=== PATIENT | male | born 1970 | race Caucasian/White ===

== ENCOUNTER 2017-06-11 02:35 | Emergency (ER) | payer MEDICARE, MEDICAID ==
[~2017-06-11] VITALS: Ht 170.2 cm; Wt 75.0 kg
[~2017-06-11 02:35] MED LIST: OLAN2.5T3 PO; OLAN5TAB3 PO
[2017-06-11 02:38] VITALS: BP 144/93
[2017-06-11] MEDS ORDERED: OLAN2.5T3 PO (02:48)
[2017-06-11] MEDS ORDERED: IBUPROFEN 200 MG TABLET ONE (02:51)
[2017-06-11] MEDS ORDERED: IBUPROFEN 200 MG TABLET PO ONE (03:00)
== END 2017-06-11 04:15 | disposition home or self-care (01) ==
LOC: ED 04:00
DX: S93.602A Unspecified sprain of left foot, initial encounter (principal); F10.220 Alcohol dependence with intoxication, uncomplicated; F20.9 Schizophrenia, unspecified; W01.0XXA Fall on same level from slipping, tripping and stumbling without subsequent striking against object, initial encounter; Y93.89 Activity, other specified; Y99.8 Other external cause status; Y92.410 Unspecified street and highway as the place of occurrence of the external cause
CPT/HCPCS: 99284

== ENCOUNTER 2017-07-23 16:23 | Emergency (ER) | payer MEDICARE, MEDICAID ==
[~2017-07-23] VITALS: Ht 170.2 cm; Wt 75.0 kg
[~2017-07-23 16:23] MED LIST changes: +FOLI-17 PO; +THIA100T6 PO
[2017-07-23 16:26] VITALS: BP 138/72
== END 2017-07-23 22:34 | disposition home or self-care (01) ==
LOC: ED 16:49
DX: F10.120 Alcohol abuse with intoxication, uncomplicated (principal)
CPT/HCPCS: 99283

== ENCOUNTER 2017-07-29 15:32 | Emergency (ER) | payer MEDICARE, MEDICAID ==
[~2017-07-29] VITALS: Ht 172.7 cm; Wt 75.0 kg
[2017-07-29 22:17] VITALS: BP 113/51
== END 2017-07-29 22:24 | disposition home or self-care (01) ==
LOC: ED 16:02
DX: S09.90XA Unspecified injury of head, initial encounter (principal); S00.83XA Contusion of other part of head, initial encounter; F10.229 Alcohol dependence with intoxication, unspecified; F17.210 Nicotine dependence, cigarettes, uncomplicated; W19.XXXA Unspecified fall, initial encounter; Y93.89 Activity, other specified; Y92.89 Other specified places as the place of occurrence of the external cause; Y99.8 Other external cause status
CPT/HCPCS: 70450; 70486; 93005; 99284

== ENCOUNTER 2017-09-16 21:13 | Emergency (ER) | payer MEDICARE, MEDICAID ==
[~2017-09-16] VITALS: Ht 170.2 cm; Wt 69.0 kg
[2017-09-17 02:36] LABS: BASOPHILS # (AUTO) 0.04 x10^3/uL (0-0.1); BASOPHILS % (AUTO) 0 % (0-1); EOSINOPHILS # (AUTO) 0.04 x10^3/uL (0-0.4); EOSINOPHILS % (AUTO) 0 % (1-7); LYMPHOCYTES # (AUTO) 3.12 x10^3/uL (1-3.4); LYMPHOCYTES % (AUTO) 32 % (22-44); MD NO; MEAN CORPUSCULAR HEMOGLOBIN 29.6 pg (27.5-34.5); MEAN CORPUSCULAR HGB CONC 33.7 g/dL (33.2-36.2); MEAN PLATELET VOLUME 7.7 fL (7.4-10.4); MONOCYTES # (AUTO) 0.86 x10^3/uL (0.2-0.8); MONOCYTES % (AUTO) 9 % (2-9); NEUTROPHILS # (AUTO) 5.66 x10^3/uL (1.8-6.8); NEUTROPHILS % (AUTO) 58 % (42-75); PLATELET COUNT 231 x10^3/uL (130-400); RED BLOOD COUNT 4.81 x10^6/uL (4.38-5.82)
[2017-09-17 02:47] LABS: ALANINE AMINOTRANSFERASE 28 U/L (12-78); ALBUMIN 3.3 g/dL (3.4-5.0); ANION GAP 10 mmol/L (5-15); CALCIUM 7.7 mg/dL (8.5-10.1); CHLORIDE 109 mmol/L (98-107); CREATININE 0.67 mg/dL (0.7-1.3)
[2017-09-17 02:51] LABS: ALKALINE PHOSPHATASE 84 U/L (45-117); BILIRUBIN,TOTAL 0.3 mg/dL (0.2-1.0); TOTAL PROTEIN 7.1 g/dL (6.4-8.2)
[2017-09-17 02:58] VITALS: BP 124/74
== END 2017-09-17 05:24 | disposition home or self-care (01) ==
LOC: ED 23:15
DX: F10.220 Alcohol dependence with intoxication, uncomplicated (principal); F20.9 Schizophrenia, unspecified
CPT/HCPCS: 36415; 80053; 80307; 85025; 99284

== ENCOUNTER 2017-09-24 11:39 | Emergency (ER) | payer MEDICARE, MEDICAID ==
[~2017-09-24] VITALS: Ht 172.7 cm; Wt 72.0 kg
[2017-09-24 14:51] VITALS: BP 109/64
== END 2017-09-24 15:58 | disposition left against medical advice (07) ==
LOC: ED 15:50
DX: F10.220 Alcohol dependence with intoxication, uncomplicated (principal); F19.10 Other psychoactive substance abuse, uncomplicated; G40.909 Epilepsy, unspecified, not intractable, without status epilepticus; Z72.9 Problem related to lifestyle, unspecified; F20.9 Schizophrenia, unspecified
CPT/HCPCS: 99283

== ENCOUNTER 2017-09-24 19:48 | Emergency (ER) | payer MEDICARE, MEDICAID ==
[~2017-09-24] VITALS: Ht 167.6 cm; Wt 70.0 kg
[2017-09-24 22:16] VITALS: BP 122/68
== END 2017-09-25 00:16 | disposition left against medical advice (07) ==
LOC: ED 20:15
DX: F10.220 Alcohol dependence with intoxication, uncomplicated (principal); F17.200 Nicotine dependence, unspecified, uncomplicated; G40.909 Epilepsy, unspecified, not intractable, without status epilepticus; F20.9 Schizophrenia, unspecified; Z72.9 Problem related to lifestyle, unspecified
CPT/HCPCS: 99283

== ENCOUNTER 2017-09-25 02:31 | Emergency (ER) | payer MEDICARE, MEDICAID ==
[2017-09-25 02:47] VITALS: BP 132/88
== END 2017-09-25 02:49 | disposition home or self-care (01) ==
LOC: ED 02:36
DX: F10.120 Alcohol abuse with intoxication, uncomplicated (principal); G40.909 Epilepsy, unspecified, not intractable, without status epilepticus; F19.10 Other psychoactive substance abuse, uncomplicated; Z72.9 Problem related to lifestyle, unspecified; F20.9 Schizophrenia, unspecified
CPT/HCPCS: 99283

== ENCOUNTER 2017-09-27 18:07 | Emergency (ER) | payer MEDICARE, MEDICAID ==
[~2017-09-27] VITALS: Ht 167.6 cm; Wt 72.7 kg
[2017-09-27 21:06] VITALS: BP 110/69
== END 2017-09-27 21:08 | disposition home or self-care (01) ==
LOC: ED 18:34
DX: F10.220 Alcohol dependence with intoxication, uncomplicated (principal); Z72.89 Other problems related to lifestyle
CPT/HCPCS: 99283

== ENCOUNTER 2017-09-28 01:16 | Emergency (ER) | payer MEDICARE, MEDICAID | END 2017-09-28 01:33 | disposition left against medical advice (07) | LOC: ED 01:27 | DX: Z53.21 Procedure and treatment not carried out due to patient leaving prior to being seen by health care provider (principal) ==

== ENCOUNTER 2017-10-05 13:59 | Emergency (ER) | payer MEDICARE, MEDICAID ==
[~2017-10-05] VITALS: Ht 170.2 cm; Wt 75.0 kg
[2017-10-05 18:00] VITALS: BP 103/57
== END 2017-10-05 18:25 | disposition home or self-care (01) ==
LOC: ED 18:10
DX: S00.211A Abrasion of right eyelid and periocular area, initial encounter (principal); F10.120 Alcohol abuse with intoxication, uncomplicated; F17.200 Nicotine dependence, unspecified, uncomplicated; W19.XXXA Unspecified fall, initial encounter; Y93.89 Activity, other specified; Y92.009 Unspecified place in unspecified non-institutional (private) residence as the place of occurrence of the external cause; Y99.9 Unspecified external cause status
CPT/HCPCS: 70450; 99284

== ENCOUNTER 2017-10-05 20:20 | Emergency (ER) | payer MEDICARE, MEDICAID ==
[2017-10-06 01:37] VITALS: BP 117/63
== END 2017-10-06 01:44 | disposition home or self-care (01) ==
LOC: ED 21:52
DX: S06.0X0A Concussion without loss of consciousness, initial encounter (principal); S02.2XXA Fracture of nasal bones, initial encounter for closed fracture; S00.81XA Abrasion of other part of head, initial encounter; F10.220 Alcohol dependence with intoxication, uncomplicated; W18.30XA Fall on same level, unspecified, initial encounter; Y93.89 Activity, other specified; Y92.410 Unspecified street and highway as the place of occurrence of the external cause; Y99.8 Other external cause status
CPT/HCPCS: 70450; 70486; 72125; 99284

== ENCOUNTER 2017-10-06 09:05 | Emergency (ER) | payer MEDICARE, MEDICAID ==
[~2017-10-06] VITALS: Ht 172.7 cm; Wt 68.5 kg
[2017-10-06 12:38] VITALS: BP 115/77
== END 2017-10-06 13:10 | disposition home or self-care (01) ==
LOC: ED 09:12
DX: S09.90XA Unspecified injury of head, initial encounter (principal); F10.220 Alcohol dependence with intoxication, uncomplicated; F17.210 Nicotine dependence, cigarettes, uncomplicated; X58.XXXA Exposure to other specified factors, initial encounter; Y93.89 Activity, other specified; Y92.89 Other specified places as the place of occurrence of the external cause; Y99.8 Other external cause status
CPT/HCPCS: 99283

== ENCOUNTER 2017-10-07 14:45 | Emergency (ER) | payer MEDICARE, MEDICAID ==
[~2017-10-07] VITALS: Ht 170.2 cm; Wt 68.2 kg
[2017-10-07 15:23] LABS: BASOPHILS # (AUTO) 0.06 x10^3/uL (0-0.1); BASOPHILS % (AUTO) 1 % (0-1); EOSINOPHILS # (AUTO) 0.02 x10^3/uL (0-0.4); EOSINOPHILS % (AUTO) 0 % (1-7); LYMPHOCYTES # (AUTO) 2.12 x10^3/uL (1-3.4); LYMPHOCYTES % (AUTO) 27 % (22-44); MD NO; MEAN CORPUSCULAR HEMOGLOBIN 29.7 pg (27.5-34.5); MEAN CORPUSCULAR HGB CONC 33.8 g/dL (33.2-36.2); MEAN CORPUSCULAR VOLUME 87.9 fL (81-97); MEAN PLATELET VOLUME 7.3 fL (7.4-10.4); MONOCYTES # (AUTO) 0.97 x10^3/uL (0.2-0.8); MONOCYTES % (AUTO) 12 % (2-9); NEUTROPHILS # (AUTO) 4.71 x10^3/uL (1.8-6.8); NEUTROPHILS % (AUTO) 60 % (42-75); PLATELET COUNT 286 x10^3/uL (130-400); RED BLOOD COUNT 5.05 x10^6/uL (4.38-5.82); RED CELL DISTRIBUTION WIDTH 15.3 % (9.4-14.8)
[2017-10-07] MEDS ORDERED: THIAMINE 100 MG in SODIUM CHLORIDE 0.9% 50 ML IVPB ONE (15:30)
[2017-10-07] MEDS ORDERED: SODIUM CHLORIDE FLUSH 10ML SYR IVF ONE (15:30)
[2017-10-07] MEDS ORDERED: SODIUM CHLORIDE 0.9% 1,000ML IVBOLUS ONE (15:30)
[2017-10-07 15:36] LABS: ALANINE AMINOTRANSFERASE 36 U/L (12-78); ALBUMIN 3.7 g/dL (3.4-5.0); ANION GAP 12 mmol/L (5-15); CALCIUM 8.2 mg/dL (8.5-10.1); CHLORIDE 103 mmol/L (98-107); CREATININE 0.78 mg/dL (0.7-1.3)
[2017-10-07 15:39] LABS: ALKALINE PHOSPHATASE 115 U/L (45-117); BILIRUBIN,TOTAL 0.3 mg/dL (0.2-1.0); TOTAL PROTEIN 8.2 g/dL (6.4-8.2)
[2017-10-07 20:49] VITALS: BP 100/76
== END 2017-10-07 20:51 | disposition home or self-care (01) ==
LOC: ED 16:11
DX: S63.601A Unspecified sprain of right thumb, initial encounter (principal); F10.129 Alcohol abuse with intoxication, unspecified; W19.XXXA Unspecified fall, initial encounter; Y93.89 Activity, other specified; Y92.410 Unspecified street and highway as the place of occurrence of the external cause; Y99.9 Unspecified external cause status
CPT/HCPCS: 36415; 73140; 80053; 85025; 96365; 99285; J3411; J7030

== ENCOUNTER 2017-10-08 02:38 | Inpatient (IN) | payer MEDICARE, MEDICAID ==
[~2017-10-08] VITALS: Ht 170.2 cm; Wt 75.2 kg
[2017-10-08] MEDS ORDERED: HYDROcodone/APAP 5/325 TABLET ONE (03:34)
[2017-10-08] MEDS ORDERED: LORazepam 2 MG/ML, 1ML ONE (06:23)
[2017-10-08] MEDS ORDERED: LORazepam 2 MG/ML, 1ML IM ONE (06:30)
[2017-10-08] MEDS ORDERED: SODIUM CHLORIDE FLUSH 10ML SYR IVF ONE (11:30)
[2017-10-08 11:53] LABS: BASOPHILS # (AUTO) 0.05 x10^3/uL (0-0.1); BASOPHILS % (AUTO) 1 % (0-1); EOSINOPHILS # (AUTO) 0.06 x10^3/uL (0-0.4); EOSINOPHILS % (AUTO) 1 % (1-7); LYMPHOCYTES % (AUTO) 37 % (22-44); MD NO; MEAN CORPUSCULAR HEMOGLOBIN 30.3 pg (27.5-34.5); MEAN CORPUSCULAR HGB CONC 34.2 g/dL (33.2-36.2); MEAN CORPUSCULAR VOLUME 88.6 fL (81-97); MEAN PLATELET VOLUME 7.4 fL (7.4-10.4); MONOCYTES # (AUTO) 1.02 x10^3/uL (0.2-0.8); MONOCYTES % (AUTO) 15 % (2-9); NEUTROPHILS # (AUTO) 3.24 x10^3/uL (1.8-6.8); NEUTROPHILS % (AUTO) 47 % (42-75); PLATELET COUNT 271 x10^3/uL (130-400); RED CELL DISTRIBUTION WIDTH 15.5 % (9.4-14.8)
[2017-10-08 12:05] LABS: ALBUMIN 3.5 g/dL (3.4-5.0); ANION GAP 11 mmol/L (5-15); CALCIUM 8.1 mg/dL (8.5-10.1); CHLORIDE 107 mmol/L (98-107); CREATININE 0.75 mg/dL (0.7-1.3)
[2017-10-08] MEDS ORDERED: MAGNESIUM SULFATE 1 GM, THIAMINE 100 MG, FOLIC ACID 1 MG, MVI ADULT 10 ML in SODIUM CHL... IV ONE (13:30)
[2017-10-08 15:00] VITALS: BP 106/72
[2017-10-08] MEDS ORDERED: LORazepam 2 MG/ML, 1ML IV PRN ×4 (15:00)
[2017-10-08] MEDS ORDERED: ONDANSETRON ODT 4 MG PO PRN (15:00)
[2017-10-08] MEDS ORDERED: ACETAMINOPHEN 325 MG TABLET PO PRN (15:00)
[2017-10-08] MEDS ORDERED: hydrALAzine 20 MG/ML, 1ML IVPush PRN (15:00)
[2017-10-08] MEDS ORDERED: DOCUSATE 100 MG CAPSULE PO PRN (15:00)
[2017-10-08] MEDS ORDERED: GUAIFENESIN/DM 200-20MG, 10ML UDC PO PRN (15:00)
[2017-10-08] MEDS: NICOTINE 14MG/24 HR PATCH.TD24 TD SCH (16:00)
[2017-10-08] MEDS: ENOXAPARIN 40 MG/0.4 ML SQ SCH (16:01)
[2017-10-08 16:15] LABS: FOLATE LEVEL > 20.0 ng/mL (3.1-17.5)
[2017-10-08] MEDS: POTASSIUM CHLORIDE 20 MEQ, MAGNESIUM SULFATE 2 GM, THIAMINE 100 MG, MVI ADULT 10 ML, FO... IV SCH (16:37)
[2017-10-08 19:56] VITALS: BP 118/68
[2017-10-08] MEDS: LORazepam 2 MG/ML, 1ML IV PRN (20:22)
[2017-10-09 01:51] VITALS: BP 135/73
[2017-10-09 05:26] LABS: BASOPHILS # (AUTO) 0.02 x10^3/uL (0-0.1); BASOPHILS % (AUTO) 0 % (0-1); EOSINOPHILS # (AUTO) 0.04 x10^3/uL (0-0.4); EOSINOPHILS % (AUTO) 1 % (1-7); LYMPHOCYTES # (AUTO) 1.64 x10^3/uL (1-3.4); LYMPHOCYTES % (AUTO) 24 % (22-44); MD NO; MEAN CORPUSCULAR HEMOGLOBIN 30.1 pg (27.5-34.5); MEAN CORPUSCULAR HGB CONC 33.8 g/dL (33.2-36.2); MEAN CORPUSCULAR VOLUME 89.2 fL (81-97); MEAN PLATELET VOLUME 7.7 fL (7.4-10.4); MONOCYTES # (AUTO) 1.35 x10^3/uL (0.2-0.8); MONOCYTES % (AUTO) 20 % (2-9); NEUTROPHILS # (AUTO) 3.83 x10^3/uL (1.8-6.8); NEUTROPHILS % (AUTO) 56 % (42-75); PLATELET COUNT 248 x10^3/uL (130-400); RED BLOOD COUNT 4.71 x10^6/uL (4.38-5.82); RED CELL DISTRIBUTION WIDTH 14.9 % (9.4-14.8)
[2017-10-09] MEDS: LORazepam 2 MG/ML, 1ML IV PRN (05:28)
[2017-10-09 05:31] LABS: CHLORIDE 103 mmol/L (98-107)
[2017-10-09 05:43] LABS: ALANINE AMINOTRANSFERASE 29 U/L (12-78); ALBUMIN 3.4 g/dL (3.4-5.0); ALKALINE PHOSPHATASE 98 U/L (45-117); ANION GAP 9 mmol/L (5-15); CALCIUM 8.3 mg/dL (8.5-10.1); CREATININE 0.71 mg/dL (0.7-1.3); TOTAL PROTEIN 7.5 g/dL (6.4-8.2)
[2017-10-09 06:48] VITALS: BP 122/74
[2017-10-09] MEDS: PANTOPRAZOLE 40 MG IV IVPush SCH (08:19)
[2017-10-09] MEDS: OLANZAPINE 5 MG TABLET PO SCH (08:19)
[2017-10-09 14:00] VITALS: BP_SYST 123; BP_SYST 97; BP_DIAS 57; BP_DIAS 71
[2017-10-09] MEDS ORDERED: GADOBUTROL 7.5 MMOL/7.5 ML PFS ONE (15:50)
[2017-10-09] MEDS: ENOXAPARIN 40 MG/0.4 ML SQ SCH (16:08)
[2017-10-09] MEDS: POTASSIUM CHLORIDE 20 MEQ, MAGNESIUM SULFATE 2 GM, THIAMINE 100 MG, MVI ADULT 10 ML, FO... IV SCH (16:08)
[2017-10-09] MEDS: NICOTINE 14MG/24 HR PATCH.TD24 TD SCH (16:08)
[2017-10-09 19:19] VITALS: BP 127/82
[2017-10-10 01:33] VITALS: BP 125/77
[2017-10-10] MEDS: OLANZAPINE 5 MG TABLET PO SCH (08:04)
[2017-10-10] MEDS: PANTOPRAZOLE 40 MG IV IVPush SCH (08:04)
== END 2017-10-10 09:30 | disposition left against medical advice (07) | DRG 894 ==
LOC: ED 02:52 → EDIP 12:59 → 3NE 13:40
PROVIDERS: ADMIT Hospitalist; ATTEND Hospitalist
DX: F10.120 Alcohol abuse with intoxication, uncomplicated (principal); F20.9 Schizophrenia, unspecified; F17.210 Nicotine dependence, cigarettes, uncomplicated; R29.6 Repeated falls; X58.XXXA Exposure to other specified factors, initial encounter; S00.03XA Contusion of scalp, initial encounter; G40.909 Epilepsy, unspecified, not intractable, without status epilepticus; Z53.21 Procedure and treatment not carried out due to patient leaving prior to being seen by health care provider; Z87.820 Personal history of traumatic brain injury; Z59.0 Homelessness; Y93.89 Activity, other specified; Y92.89 Other specified places as the place of occurrence of the external cause
CPT/HCPCS: 36415; 70450; 70553; 80048; 80053; 82040; 82607; 82746; 83735; 84100; 84425; 84443; 85025; 99285; A9585; J1650; J3411; J3475; J3480; J7042; C9113; J2060

== ENCOUNTER 2017-10-10 20:39 | Emergency (ER) | payer MEDICARE, MEDICAID ==
[~2017-10-10] VITALS: Ht 170.2 cm; Wt 70.0 kg
[2017-10-10 20:44] VITALS: BP 110/67
== END 2017-10-10 22:25 | disposition home or self-care (01) ==
LOC: ED 21:51
DX: F10.220 Alcohol dependence with intoxication, uncomplicated (principal); G40.909 Epilepsy, unspecified, not intractable, without status epilepticus; F20.9 Schizophrenia, unspecified; F17.200 Nicotine dependence, unspecified, uncomplicated
CPT/HCPCS: 99283

== ENCOUNTER → 2017-10-10 | Emergency (ER) | payer MEDICARE, MEDICAID ==
[~2017-10-10] VITALS: Ht 170.2 cm; Wt 70.0 kg
[2017-10-10 17:08] VITALS: BP 105/64
== END ==
LOC: ED 17:10
DX: F10.220 Alcohol dependence with intoxication, uncomplicated (principal)
CPT/HCPCS: 36415; 80307; 99283

== ENCOUNTER 2017-10-27 20:13 | Emergency (ER) | payer MEDICARE, MEDICAID ==
[~2017-10-27] VITALS: Ht 170.2 cm; Wt 72.0 kg
[2017-10-27 21:30] LABS: BASOPHILS # (AUTO) 0.05 x10^3/uL (0-0.1); BASOPHILS % (AUTO) 0 % (0-1); EOSINOPHILS # (AUTO) 0.05 x10^3/uL (0-0.4); EOSINOPHILS % (AUTO) 0 % (1-7); LYMPHOCYTES # (AUTO) 2.38 x10^3/uL (1-3.4); LYMPHOCYTES % (AUTO) 21 % (22-44); MD NO; MEAN CORPUSCULAR HEMOGLOBIN 30.3 pg (27.5-34.5); MEAN CORPUSCULAR VOLUME 89.2 fL (81-97); MONOCYTES # (AUTO) 0.97 x10^3/uL (0.2-0.8); MONOCYTES % (AUTO) 9 % (2-9); NEUTROPHILS # (AUTO) 7.89 x10^3/uL (1.8-6.8); NEUTROPHILS % (AUTO) 70 % (42-75); PLATELET COUNT 204 x10^3/uL (130-400); RED BLOOD COUNT 4.66 x10^6/uL (4.38-5.82); RED CELL DISTRIBUTION WIDTH 15.7 % (9.4-14.8)
[2017-10-27 21:42] LABS: ALBUMIN 3.7 g/dL (3.4-5.0); ANION GAP 11 mmol/L (5-15); CALCIUM 8.1 mg/dL (8.5-10.1); CHLORIDE 105 mmol/L (98-107); CREATININE 0.84 mg/dL (0.7-1.3)
[2017-10-27 21:46] LABS: TROPONIN I < 0.015 ng/mL (0.000-0.045)
[2017-10-27 22:16] VITALS: BP 117/70
== END 2017-10-27 22:43 | disposition home or self-care (01) ==
LOC: ED 22:04
DX: R07.89 Other chest pain (principal); F10.120 Alcohol abuse with intoxication, uncomplicated; F17.200 Nicotine dependence, unspecified, uncomplicated; Z79.899 Other long term (current) drug therapy; Y90.9 Presence of alcohol in blood, level not specified
CPT/HCPCS: 36415; 71045; 80048; 80307; 82040; 84484; 85025; 93005; 99285

== ENCOUNTER 2017-11-05 22:42 | Emergency (ER) | payer MEDICARE, MEDICAID ==
[~2017-11-05] VITALS: Ht 170.2 cm; Wt 74.0 kg
[2017-11-05 23:01] VITALS: BP 115/34
[2017-11-05] MEDS ORDERED: BACITRACIN ZINC OINT 500U/GM, 0.9 GM TP ONE (23:30)
== END 2017-11-06 03:29 | disposition home or self-care (01) ==
LOC: ED 23:34
DX: F10.121 Alcohol abuse with intoxication delirium (principal); G92 Toxic encephalopathy; S09.90XA Unspecified injury of head, initial encounter; M25.562 Pain in left knee; F17.200 Nicotine dependence, unspecified, uncomplicated; F20.9 Schizophrenia, unspecified; Z72.9 Problem related to lifestyle, unspecified; X58.XXXA Exposure to other specified factors, initial encounter; Y93.89 Activity, other specified; Y99.8 Other external cause status; Y92.89 Other specified places as the place of occurrence of the external cause
CPT/HCPCS: 70450; 99283; 99284

== ENCOUNTER 2017-11-06 10:57 | Emergency (ER) | payer MEDICARE, MEDICAID ==
[~2017-11-06] VITALS: Ht 170.2 cm; Wt 70.0 kg
[2017-11-06 11:01] VITALS: BP 112/71
[2017-11-06] MEDS ORDERED: LIDOCAINE-MPF 1%, 5ML INFIL ONE (11:30)
[2017-11-06] MEDS ORDERED: DIPH,PERTUSS(ACELL),TET VAC/PF 0.5 ML IM-VACC ONE (11:30)
[2017-11-06] MEDS ORDERED: LIDOCAINE-MPF 1%, 5ML ONE (12:38)
== END 2017-11-06 15:46 | disposition home or self-care (01) ==
LOC: ED 15:10
DX: S02.2XXA Fracture of nasal bones, initial encounter for closed fracture (principal); S06.5X9A Traumatic subdural hemorrhage with loss of consciousness of unspecified duration, initial encounter; S01.411A Laceration without foreign body of right cheek and temporomandibular area, initial encounter; F20.9 Schizophrenia, unspecified; F10.229 Alcohol dependence with intoxication, unspecified; W19.XXXA Unspecified fall, initial encounter; Y93.89 Activity, other specified; Y99.8 Other external cause status; Y92.89 Other specified places as the place of occurrence of the external cause
CPT/HCPCS: 12011; 70450; 70486; 99284

== ENCOUNTER 2017-11-11 15:13 | Emergency (ER) | payer MEDICARE, MEDICAID ==
[~2017-11-11] VITALS: Ht 170.2 cm; Wt 72.3 kg
[2017-11-11 15:14] VITALS: BP 134/87
== END 2017-11-11 15:38 | disposition left against medical advice (07) ==
LOC: ED 15:32
DX: S81.811A Laceration without foreign body, right lower leg, initial encounter (principal); Z53.21 Procedure and treatment not carried out due to patient leaving prior to being seen by health care provider; X58.XXXA Exposure to other specified factors, initial encounter; Y93.89 Activity, other specified; Y99.8 Other external cause status; Y92.89 Other specified places as the place of occurrence of the external cause

== ENCOUNTER 2017-12-08 20:34 | Emergency (ER) | payer MEDICARE, MEDICAID ==
[~2017-12-08] VITALS: Ht 170.2 cm; Wt 75.0 kg
[2017-12-08] MEDS ORDERED: LIDOCAINE-MPF 2% ,5ML INFIL ONE (21:30)
[2017-12-08] MEDS ORDERED: LIDOCAINE-MPF 2% ,5ML ONE (21:34)
[2017-12-08 23:16] VITALS: BP 104/57
== END 2017-12-08 23:30 | disposition home or self-care (01) ==
LOC: ED 21:37
DX: S52.572A Other intraarticular fracture of lower end of left radius, initial encounter for closed fracture (principal); S52.612A Displaced fracture of left ulna styloid process, initial encounter for closed fracture; F20.9 Schizophrenia, unspecified; G40.909 Epilepsy, unspecified, not intractable, without status epilepticus; F10.20 Alcohol dependence, uncomplicated; F17.200 Nicotine dependence, unspecified, uncomplicated; F11.10 Opioid abuse, uncomplicated; X58.XXXA Exposure to other specified factors, initial encounter; Y93.89 Activity, other specified; Y92.89 Other specified places as the place of occurrence of the external cause; Y99.8 Other external cause status
CPT/HCPCS: 25605; 99284

== ENCOUNTER 2017-12-10 10:16 | Emergency (ER) | payer MEDICARE, MEDICAID ==
[~2017-12-10] VITALS: Ht 170.2 cm; Wt 66.8 kg
[2017-12-10] MEDS ORDERED: BACITRACIN ZINC OINT 500U/GM, 0.9 GM ONE (11:28)
[2017-12-10 17:37] VITALS: BP 96/48
== END 2017-12-10 18:35 | disposition home or self-care (01) ==
LOC: ED 10:35
DX: F10.220 Alcohol dependence with intoxication, uncomplicated (principal); G40.909 Epilepsy, unspecified, not intractable, without status epilepticus
CPT/HCPCS: 99283

== ENCOUNTER 2018-01-03 21:14 | Emergency (ER) | payer MEDICARE, MEDICAID ==
[~2018-01-03] VITALS: Ht 177.8 cm; Wt 80.0 kg
[2018-01-03 22:10] LABS: ANION GAP 12 mmol/L (5-15); CALCIUM 8.5 mg/dL (8.5-10.1); CHLORIDE 104 mmol/L (98-107)
[2018-01-04 05:08] VITALS: BP 115/75
== END 2018-01-04 05:55 | disposition home or self-care (01) ==
LOC: ED 22:26
DX: F10.221 Alcohol dependence with intoxication delirium (principal); S82.422A Displaced transverse fracture of shaft of left fibula, initial encounter for closed fracture; Z72.89 Other problems related to lifestyle; F17.200 Nicotine dependence, unspecified, uncomplicated; X58.XXXA Exposure to other specified factors, initial encounter; Y93.89 Activity, other specified; Y92.89 Other specified places as the place of occurrence of the external cause; Y99.8 Other external cause status
CPT/HCPCS: 29125; 36415; 80048; 80307

== ENCOUNTER 2018-01-04 08:32 | Emergency (ER) | payer MEDICARE, MEDICAID ==
[~2018-01-04] VITALS: Ht 170.2 cm; Wt 68.2 kg
[2018-01-04 14:29] VITALS: BP 109/52
== END 2018-01-04 15:27 | disposition home or self-care (01) ==
LOC: ED 11:05
DX: F10.220 Alcohol dependence with intoxication, uncomplicated (principal)
CPT/HCPCS: 99283

== ENCOUNTER 2018-01-06 22:37 | Emergency (ER) | payer MEDICAID, MEDICARE ==
[~2018-01-06] VITALS: Ht 172.7 cm; Wt 67.0 kg
[2018-01-07 05:31] VITALS: BP 112/75
== END 2018-01-07 05:33 | disposition home or self-care (01) ==
LOC: ED 01-07 00:34
DX: F10.220 Alcohol dependence with intoxication, uncomplicated (principal); F17.210 Nicotine dependence, cigarettes, uncomplicated
CPT/HCPCS: 99283

== ENCOUNTER 2018-01-08 18:51 | Emergency (ER) | payer MEDICAID ==
[~2018-01-08] VITALS: Ht 170.2 cm; Wt 68.2 kg
[2018-01-08 18:58] VITALS: BP 113/78
== END 2018-01-08 22:12 | disposition home or self-care (01) ==
LOC: ED 20:11
DX: F10.120 Alcohol abuse with intoxication, uncomplicated (principal); F17.200 Nicotine dependence, unspecified, uncomplicated
CPT/HCPCS: 99281; 99283

== ENCOUNTER 2018-01-08 23:25 | Emergency (ER) | payer MEDICAID ==
[~2018-01-08] VITALS: Ht 167.6 cm; Wt 75.0 kg
[2018-01-08 23:28] VITALS: BP 132/76
== END 2018-01-09 00:11 | disposition home or self-care (01) ==
LOC: ED 23:59
DX: F10.10 Alcohol abuse, uncomplicated (principal); J43.9 Emphysema, unspecified; Z72.89 Other problems related to lifestyle
CPT/HCPCS: 99281

== ENCOUNTER 2018-01-10 19:57 | Emergency (ER) | payer MEDICAID ==
[~2018-01-10] VITALS: Ht 167.6 cm; Wt 65.8 kg
[2018-01-10 20:01] VITALS: BP 133/74
[2018-01-10] MEDS ORDERED: BACITRACIN ZINC OINT 500U/GM, 0.9 GM ONE (20:21)
== END 2018-01-10 20:54 | disposition home or self-care (01) ==
LOC: ED 20:25
DX: S52.502A Unspecified fracture of the lower end of left radius, initial encounter for closed fracture (principal); S52.612A Displaced fracture of left ulna styloid process, initial encounter for closed fracture; S80.811A Abrasion, right lower leg, initial encounter; W22.8XXA Striking against or struck by other objects, initial encounter; Y93.89 Activity, other specified; Y92.811 Bus as the place of occurrence of the external cause; Y99.8 Other external cause status
CPT/HCPCS: 29125; 99283

== ENCOUNTER 2018-04-27 19:34 | Emergency (ER) | payer MEDICAID ==
[~2018-04-27] VITALS: Ht 170.2 cm; Wt 149.5 kg
[~2018-04-27 19:34] MED LIST changes: -THIA100T6 PO; +THIA100T67 PO
[2018-04-27 19:45] VITALS: BP 103/55
== END 2018-04-27 21:00 | disposition home or self-care (01) ==
LOC: ED 20:54
DX: S52.515A Nondisplaced fracture of left radial styloid process, initial encounter for closed fracture (principal); X50.1XXA Overexertion from prolonged static or awkward postures, initial encounter; Y93.89 Activity, other specified; Y92.009 Unspecified place in unspecified non-institutional (private) residence as the place of occurrence of the external cause; Y99.8 Other external cause status
CPT/HCPCS: 29125; 99284

== ENCOUNTER 2018-10-13 09:50 | Emergency (ER) | payer SELFPAY ==
[~2018-10-13] VITALS: Ht 180.3 cm; Wt 75.0 kg
[2018-10-13 09:57] VITALS: BP 113/69
--- NOTE | 2018-10-13 10:12 | NUR ---
XRAY COMPLETED, WAITING RAD READ. CALL LIGHT WITHIN REACH, PT WATCHING TV.
--- NOTE | 2018-10-13 10:29 | NUR ---
RAD READ BACK, PT FOR RECHECK.
--- NOTE | 2018-10-13 10:43 | NUR ---
AIR STIRRUP PLACED BACK ON L ANKLE. PT ABLE TO WALK WITH STEADY GAIT TO DISCHARGE DESK. CRUTCHES AND CANE OFFERED, PT REFUSED.
== END 2018-10-13 10:46 | disposition home or self-care (01) ==
LOC: ED 09:56
DX: F10.120 Alcohol abuse with intoxication, uncomplicated (principal); F17.200 Nicotine dependence, unspecified, uncomplicated
CPT/HCPCS: 99283

== ENCOUNTER 2018-10-27 18:40 | Emergency (ER) | payer MEDICARE ==
[~2018-10-27] VITALS: Ht 170.2 cm; Wt 80.0 kg
--- NOTE | 2018-10-27 19:14 | NUR ---
REPORT TO KELY, TRANSFER OF CARE AT THIS TIME.
[2018-10-27] MEDS ORDERED: OLAN10TA3 PO (20:05)
[2018-10-27] MEDS ORDERED: ANTIBIOTIC (20:05)
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
--- NOTE | 2018-10-27 21:04 | NUR ---
PT ALERT AND MUMBLING WITH SLURRED SPEECH, ABLE TO ANSWER QUESTIONS APPROPRIATE. PT ATTEMPTED TO AMBULATE IN ROOM, NOTED PT WITH UNSTEADY GAIT, ASSISTED PT BACK TO [facility], PT NOW RESTING WITH MONITORS IN PLACE, CALL LIGHT WITHIN REACH.
--- NOTE | 2018-10-27 22:27 | NUR ---
PT RESTING WITH EYES CLOSED, NAD, NOTED SPO2-89% R/A, APPLIED 2L N/C SPO2-95%, EQUAL CHEST RISE/FALL OBSERVED, SIDERAILS UP X2, MONITORS IN PLACE, CALL LIGHT WITHIN REACH.
--- NOTE | 2018-10-27 23:20 | NUR ---
PT RESTING WITH EYES CLOSED, REPOSITIONED SELF ON REBEKAH, NESHA, MONITORS IN PLACE, CALL LIGHT WITHIN REACH
[2018-10-28 00:19] VITALS: BP 100/57
--- NOTE | 2018-10-28 00:20 | NUR ---
PT RESTING WITH EYES CLOSED, NAD, EQUAL CHEST RISE/FALL OBSERVED, MONITORS IN PLACE, CALL LIGHT WITHIN REACH
--- NOTE | 2018-10-28 00:56 | NUR ---
PT ALERT AND ANSWERING ALL QUESTIONS APPROPRIATELY, AMBULATIMG IN ROOM WITHOUT DIFFICULTY
== END 2018-10-28 00:59 | disposition home or self-care (01) ==
LOC: ED 20:35
DX: F10.120 Alcohol abuse with intoxication, uncomplicated (principal); G40.909 Epilepsy, unspecified, not intractable, without status epilepticus; F17.200 Nicotine dependence, unspecified, uncomplicated; F20.9 Schizophrenia, unspecified; J43.9 Emphysema, unspecified
CPT/HCPCS: 99283

== ENCOUNTER 2019-01-10 19:12 | Emergency (ER) | payer MEDICARE ==
[~2019-01-10 19:12] MED LIST changes: +ANTIBIOTIC; +OLAN10TA3 PO
--- NOTE | 2019-01-10 20:10 | NUR ---
PT ON WALL C EMS, AWAITING ROOM. PT STATES, "I'M OUT OF HERE. THIS IS BULLSHIT." PT INDEPENDENTLY AMBULATORY C STEADY GAIT. LWBS.
== END 2019-01-10 20:13 | disposition left against medical advice (07) ==
LOC: ED 20:07
DX: T67.5XXA Heat exhaustion, unspecified, initial encounter (principal)
CPT/HCPCS: 99281

== ENCOUNTER 2019-01-15 14:22 | Emergency (ER) | payer MEDICARE, MEDICAID ==
[~2019-01-15] VITALS: Ht 180.3 cm; Wt 74.0 kg
--- NOTE | 2019-01-15 14:30 | NUR ---
PT ARRIVED VIA EMS. PER REPORT PT FOUND BY "JUDIE AMBASSADOYARED" CALLED EMS TO TRANSPORT PT TO ER. PT WITH NO C/O. PT WITH ETOH ODOR.
--- NOTE | 2019-01-15 15:19 | NUR ---
PORTABLE CXR COMPLETED
--- NOTE | 2019-01-15 16:13 | NUR ---
pt transferred to Rm 39 via [facility], received report from Meron, pt sleeping, NAD with suppl O2 in place & equal chest rise/fall, no needs at this time, call light within reach, WCTMF.
--- NOTE | 2019-01-15 16:13 | NUR ---
REPORT TO YU FOSS
--- NOTE | 2019-01-15 17:04 | NUR ---
pt continues sleeping, NAD with suppl O2 in place & equal chest rise/fall, no needs at this time, call light within reach, WCTMF.
--- NOTE | 2019-01-15 18:01 | NUR ---
pt sleeping upright on gurney, NAD with suppl O2 in place & equal chest rise/fall, no needs at this time, call light within reach, WCTMF.
--- NOTE | 2019-01-15 18:49 | NUR ---
report given to Ekta
[2019-01-15 21:47] VITALS: BP 121/79
== END 2019-01-15 21:48 | disposition home or self-care (01) ==
LOC: ED 16:21
DX: F10.220 Alcohol dependence with intoxication, uncomplicated (principal)
CPT/HCPCS: 71045; 99283

== ENCOUNTER 2019-01-16 04:33 | Emergency (ER) | payer MEDICARE, MEDICAID ==
[~2019-01-16] VITALS: Ht 180.3 cm; Wt 74.0 kg
[2019-01-16] MEDS ORDERED: SILVER SULF. CRM 1% , 25GM TP ONE (05:00)
[2019-01-16] MEDS ORDERED: SILVER SULF. CRM 1% , 25GM ONE (05:26)
[2019-01-16 06:09] VITALS: BP 136/74
== END 2019-01-16 06:10 | disposition home or self-care (01) ==
LOC: ED 05:24
DX: L03.115 Cellulitis of right lower limb (principal); G40.909 Epilepsy, unspecified, not intractable, without status epilepticus
CPT/HCPCS: 99283

== ENCOUNTER 2019-05-04 21:37 | Emergency (ER) | payer MEDICARE, MEDICAID ==
[~2019-05-04] VITALS: Ht 180.3 cm; Wt 75.0 kg
[2019-05-04 21:39] VITALS: BP 105/71
[2019-05-04] MEDS ORDERED: OLANZAPINE 5 MG TABLET ONE (21:45)
[2019-05-04] MEDS ORDERED: OLANZAPINE 5 MG TABLET PO ONE (22:00)
== END 2019-05-04 22:07 | disposition home or self-care (01) ==
LOC: ED 21:48
DX: F20.9 Schizophrenia, unspecified (principal); M54.2 Cervicalgia; F10.129 Alcohol abuse with intoxication, unspecified; Z76.0 Encounter for issue of repeat prescription; G40.909 Epilepsy, unspecified, not intractable, without status epilepticus; F17.200 Nicotine dependence, unspecified, uncomplicated
CPT/HCPCS: 99283

== ENCOUNTER 2019-05-14 11:56 | Emergency (ER) | payer MEDICARE, MEDICAID ==
[~2019-05-14] VITALS: Ht 170.2 cm; Wt 75.2 kg
[2019-05-14 11:59] VITALS: BP 116/73
[2019-05-14 12:51] LABS: BASOPHILS # (AUTO) 0.06 x10^3/uL (0-0.1); BASOPHILS % (AUTO) 1 % (0-1); EOSINOPHILS # (AUTO) 0.03 x10^3/uL (0-0.4); EOSINOPHILS % (AUTO) 1 % (1-7); LYMPHOCYTES # (AUTO) 1.48 x10^3/uL (1-3.4); LYMPHOCYTES % (AUTO) 24 % (22-44); MD NO; MEAN CORPUSCULAR HEMOGLOBIN 30.3 pg (27.5-34.5); MEAN CORPUSCULAR HGB CONC 33.5 g/dL (33.2-36.2); MEAN CORPUSCULAR VOLUME 90.4 fL (81-97); MEAN PLATELET VOLUME 7.6 fL (7.4-10.4); MONOCYTES # (AUTO) 0.98 x10^3/uL (0.2-0.8); MONOCYTES % (AUTO) 16 % (2-9); NEUTROPHILS # (AUTO) 3.65 x10^3/uL (1.8-6.8); NEUTROPHILS % (AUTO) 59 % (42-75); PLATELET COUNT 170 x10^3/uL (130-400); RED BLOOD COUNT 4.25 x10^6/uL (4.38-5.82); RED CELL DISTRIBUTION WIDTH 14.9 % (9.4-14.8)
--- NOTE | 2019-05-14 12:59 | NUR ---
PT UP TO RESTROOM. PT AMBULATES WITH A STEADY GAIT. PT IN HALLWAY TO USE PHONE.
[2019-05-14 13:00] LABS: ALBUMIN 3.1 g/dL (3.4-5.0); ANION GAP 5 mmol/L (5-15); CALCIUM 7.7 mg/dL (8.5-10.1); CHLORIDE 112 mmol/L (98-107)
[2019-05-14] MEDS ORDERED: SODIUM CHLORIDE FLUSH 10ML SYR IVF ONE (13:00)
[2019-05-14 13:19] LABS: RAPID INFLUENZA A Negative (Negative); RAPID INFLUENZA B Negative (Negative)
--- NOTE | 2019-05-14 14:17 | NUR ---
LATE NOTE 1400- PT FOUND WANDERING HALLWAYS DRESSED IN HIS CLOTHES. IV DC'D THAT WAS STARTED BY REGINA. PT REQUESTING TO LEAVE. MADE AWARE. PAPERWORK GIVEN TO PT. PT REFUSING D/C VITALS.
== END 2019-05-14 14:16 | disposition home or self-care (01) ==
LOC: ED 14:00
DX: J20.8 Acute bronchitis due to other specified organisms (principal); F20.9 Schizophrenia, unspecified
CPT/HCPCS: 36415; 71045; 80048; 82040; 83605; 85025; 87400; 99284

== ENCOUNTER 2019-05-23 19:54 | Emergency (ER) | payer MEDICARE, MEDICAID ==
[~2019-05-23] VITALS: Ht 177.8 cm; Wt 81.8 kg
--- NOTE | 2019-05-23 20:00 | NUR ---
PT BIB EMS D/T INTOXICATION AND PT SLEEPING IN [place] [address]. PT REPORTS DRINKING 2-3 PINTS OF VODKA TODAY, WILL NOT SAY HOW MUCH HE USUALLY DRINKS. PT AOX4. BREATHALYZER 0.272. PT REFUSING TO PROVIDE ORAL TEMPERATURE, REQUESTS RECTAL TEMPERATUREN STATES "FINE IM ALL FOR IT". PT CONNECTED TO ALL MONITORING, ALL SAFETY MEASURES IN PLACE, CALL LIGHT WITHIN REACH.
--- NOTE | 2019-05-23 20:33 | NUR ---
PT REFUSED TEMPERATURE. PT RESTING ON GURNEY WITH EYES CLOSED. MONITORING IN PLACE, ALL SAFETY MEASURES IN PLACE, CALL LIGHT WITHIN REACH.
--- NOTE | 2019-05-23 22:14 | NUR ---
PT RESTING ON GURNEY WITH EYES CLOSED. NO FACIAL GRIMACE, RELAXED BODY POSITION. MONITORING IN PLACE, SAFETY MEASURES IN PLACE, CALL LIGHT WITHIN REACH.
--- NOTE | 2019-05-23 22:59 | NUR ---
PT RESTING ON GURNEY WITH EYES CLOSED. PT PROVIDED WATER. ALL SAFETY MEASURES IN PLACE, CALL LIGHT WITHIN REACH. MONITORING IN PLACE.
--- NOTE | 2019-05-23 23:19 | NUR ---
ATTEMPTED TO AMBULATED PT. PT UNSTEADY AT THIS TIME AND UNABLE TO WALK UNASSISTED. WILL CONT TO MONITOR.
[2019-05-24 00:46] VITALS: BP 130/88
--- NOTE | 2019-05-24 00:47 | NUR ---
ATTEMPTED TO AMBULATE PT, STILL UNSTEADY. PT OTHERWISE RESTING IN GURNEY WITH EYES CLOSED. MONITORING IN [place], SAFETY MEASURES IN PLACE, CALL LIGHT WITHIN REACH.
--- NOTE | 2019-05-24 00:51 | NUR ---
REPORT GIVEN TO PIPO EDGE.
--- NOTE | 2019-05-24 01:20 | NUR ---
PT ALERT AND ANSWERING QUESTIONS, ABLE TO AMBULATE WITHOUT DIFFICULTY
--- NOTE | 2019-05-24 01:21 | NUR ---
PT ASSISTED TO DISCHARGE DESK AND PROVIDED WITH A CAB VOUCHER FOR SAFE DISCHARGE, PT SOMEWHAT DISAGREEABLE AT DISCHARGE AREA CREATING A DISTURBANCE, ASSISTED TO LOBBY TO WAIT FOR CAB THERE.
== END 2019-05-24 01:23 | disposition home or self-care (01) ==
LOC: ED 22:02
DX: F10.129 Alcohol abuse with intoxication, unspecified (principal); G40.909 Epilepsy, unspecified, not intractable, without status epilepticus; F20.9 Schizophrenia, unspecified; J43.9 Emphysema, unspecified; F17.200 Nicotine dependence, unspecified, uncomplicated
CPT/HCPCS: 99283

== ENCOUNTER 2019-06-10 21:01 | Emergency (ER) | payer MEDICARE, MEDICAID ==
[~2019-06-10] VITALS: Ht 170.2 cm; Wt 82.0 kg
--- NOTE | 2019-06-10 21:08 | NUR ---
bib sarah found sleeping at [place],staff called ambulance, pt + etoh odor, unable to ambulate, stated that he drank 3 pints of crown zzar today, fsbs-97, b/p-145/90, hr-86, 95% r/a. pt resting on gurney, noted o2 sat 87% r/a, applied 2l n/c o2-spo2-93%, monitors applied, siderails up x2, call light within reach
[2019-06-10 22:25] VITALS: BP 140/59
--- NOTE | 2019-06-10 22:30 | NUR ---
PT RESTING ON GURNEY WITH EYES CLOSED, NAD, RESPIRATIONS EVEN AND UNLABORED, MONITORS IN PLACE, SIDERAILS UP X2, CALL LIGHT WITHIN REACH
--- NOTE | 2019-06-10 22:58 | NUR ---
PT OPENS EYES TO VERBAL RESPONSE AND ANSWERS QUESTIONS APPROPRIATELY. PT REFUSING TO GET UP AND AMBULATE Addendum: 06/10/19 at 2302 by FERNIE WHEN THIS RN DISCUSSED WITH PT, GETTING UP AND AMBULATING, PT STATED "NO"
--- NOTE | 2019-06-10 23:03 | NUR ---
SECURITY AT PT'S BEDSIDE FOR ASSISTANCE WITH D/C OUT OF HOSPITAL
--- NOTE | 2019-06-10 23:05 | NUR ---
PT ABLE TO AMBULATE IN HALLWAY WITH STEADY GAIT
== END 2019-06-10 23:07 | disposition home or self-care (01) ==
LOC: ED 22:21
DX: F10.220 Alcohol dependence with intoxication, uncomplicated (principal); G40.909 Epilepsy, unspecified, not intractable, without status epilepticus; Z72.9 Problem related to lifestyle, unspecified; F17.200 Nicotine dependence, unspecified, uncomplicated; Y90.9 Presence of alcohol in blood, level not specified
CPT/HCPCS: 99283; 99406

== ENCOUNTER 2019-07-12 20:25 | Emergency (ER) | payer MEDICARE, MEDICAID ==
[~2019-07-12] VITALS: Ht 180.3 cm; Wt 77.2 kg
--- NOTE | 2019-07-12 20:34 | NUR ---
Pt arrives via EMS for being found at the [facility] unable to walk. Per EMS, pt stated he drank alot of [email or web address]. POC BS 89. Pt is awake but slurring words and is easily distracted. Pt cooperative, but unable to answer full triage/screening questions. Pt noted to be 86% RA while dozing off. Pt placed on 2L NC. Pt on pulse ox/HR monitor. Side rails up for safety. Warm blanket provided.
[2019-07-12 20:59] LABS: ALBUMIN 3.6 g/dL (3.4-5.0); ANION GAP 7 mmol/L (5-15); CALCIUM 8.2 mg/dL (8.5-10.1); CHLORIDE 111 mmol/L (98-107); CREATININE 0.89 mg/dL (0.7-1.3)
--- NOTE | 2019-07-12 21:28 | NUR ---
Pt continues to sleep on gurney. Pt awakens easily to verbal stimuli. Pt remains on 2L NC.
--- NOTE | 2019-07-12 23:01 | NUR ---
Pt continues to sleep on gurney. 2L oxygen remains in place. Pt awakens to verbal stimuli but then quickly falls back asleep. Urinal at bedside.
--- NOTE | 2019-07-12 23:55 | NUR ---
Pt sleeping on gurney. Pt has respositioned self. Pt remains on 2L NC and on pulse ox/HR monitor.
--- NOTE | 2019-07-13 01:01 | NUR ---
Pt beginning to stir more. VS retaken. Pt has been reminded multiple times not to put his hands down his pants. Pt will remove his hands and then grunt in response.
--- NOTE | 2019-07-13 02:00 | NUR ---
Pt sleeping on gurney. Pt remains on 2L NC. Pt easier to awaken at this time.
[2019-07-13 03:17] VITALS: BP 101/54
--- NOTE | 2019-07-13 03:43 | NUR ---
Pt more awake at this time. Pt advised that he will be discharged soon. Pt sat up and taken off oxygen.
--- NOTE | 2019-07-13 03:59 | NUR ---
Pt able to ambulate in room and gather his belongings. ERP updated. ERP okay with d/c. Taxi voucher provided. Pt ambulated out of ER.
== END 2019-07-13 04:01 | disposition home or self-care (01) ==
LOC: ED 20:53
DX: F10.120 Alcohol abuse with intoxication, uncomplicated (principal); Y90.9 Presence of alcohol in blood, level not specified; I10 Essential (primary) hypertension; J43.9 Emphysema, unspecified; Z72.89 Other problems related to lifestyle
CPT/HCPCS: 36415; 80048; 80307; 82040; 99283

== ENCOUNTER 2019-07-15 20:48 | Emergency (ER) | payer MEDICARE, MEDICAID ==
[~2019-07-15] VITALS: Ht 167.6 cm; Wt 80.0 kg
[2019-07-15 21:28] VITALS: BP 137/78
--- NOTE | 2019-07-15 21:39 | NUR ---
pt bib [facility], wants to detox, placed in , pt wants to "sleep here and maybe detox" last drink within last few hours after leaving [facility]. no needs, water offered. Haydee chavira saw pt. will await orders.
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
== END 2019-07-15 22:04 | disposition left against medical advice (07) ==
LOC: ED 21:58
DX: F10.220 Alcohol dependence with intoxication, uncomplicated (principal); G40.909 Epilepsy, unspecified, not intractable, without status epilepticus; J43.9 Emphysema, unspecified; Y90.9 Presence of alcohol in blood, level not specified
CPT/HCPCS: 99283

== ENCOUNTER 2019-08-10 03:13 | Emergency (ER) | payer MEDICARE, MEDICAID ==
[~2019-08-10] VITALS: Ht 172.7 cm; Wt 68.0 kg
[2019-08-10 03:23] VITALS: BP 128/82
--- NOTE | 2019-08-10 03:31 | NUR ---
bib [facility] for ETOH. pt toxicated, smells of alcohol. slurred speech. unable to ambulate safely, pt homeless. bed rails up x 2, call light with in reach, attached to O2 monitor.
--- NOTE | 2019-08-10 06:15 | NUR ---
PT REMAINS LETHARGIC AT THIS TIME. MOMENTARILLY AWAKENS TO VERBAL STIMULI BUT PROMPTLY RETURNS TO SLEEP. NAD.
--- NOTE | 2019-08-10 06:58 | NUR ---
Report received assumed patient care. Patient with eyes closed responds to stenal rubs at this time. VSS, RR even and unlabored.
--- NOTE | 2019-08-10 08:04 | NUR ---
Patient slowly waking up, water provided. Orientated to self and location. Will attempt to wake in the hallway.
--- NOTE | 2019-08-10 08:17 | NUR ---
PT AMBULATED TO THE RESTROOM.
--- NOTE | 2019-08-10 08:19 | NUR ---
Patient walked in the hallway unsteady. Will continue to monitor.
--- NOTE | 2019-08-10 08:55 | NUR ---
Ambulatory with standby assist. Requests to leave. VSS. Cab voucher provided to senior care.
== END 2019-08-10 09:00 | disposition home or self-care (01) ==
LOC: ED 03:32
DX: F10.120 Alcohol abuse with intoxication, uncomplicated (principal); I10 Essential (primary) hypertension; Z72.9 Problem related to lifestyle, unspecified; Y90.9 Presence of alcohol in blood, level not specified
CPT/HCPCS: 99283

== ENCOUNTER 2019-08-24 19:02 | Emergency (ER) | payer MEDICARE, MEDICAID ==
[~2019-08-24] VITALS: Ht 185.4 cm; Wt 80.0 kg
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
--- NOTE | 2019-08-24 20:43 | NUR ---
PT CURRENTLY SLEEPING ON [employer] PT AWAKENS EASILY TO NAME BEING CALLED. NAD NOTED. SKIN PWD. RESP EVEN AND UNLABORED. PT DENIES PAIN/NEEDS AT THIS TIME. CALL LIGHT WITHIN REACH. WILL CONT TO MONITOR PT.
--- NOTE | 2019-08-24 21:20 | NUR ---
PT DOZING ON GURBILL. PT AWAKENS EASILY TO NAME BEING CALLED. NAD NOTED. SKIN PWD. RESP EVEN AND UNLABORED. PT ON CONT BP AND O2 MONITORS. CALL LIGHT WITHIN REACH. WILL CONT TO MONITOR PT.
--- NOTE | 2019-08-24 22:06 | NUR ---
REPORT TO PIPO OSORIO WHO ASSUMED CARE OF PT.
[2019-08-24 23:44] VITALS: BP 101/63
--- NOTE | 2019-08-25 00:10 | NUR ---
PT AMBULATED TO LOBBY WITHOUT ASSISTANCE, TAXI VOUCHER GIVEN TO RESIDENTIAL.
== END 2019-08-25 00:12 | disposition home or self-care (01) ==
LOC: ED 08-25
DX: F10.129 Alcohol abuse with intoxication, unspecified (principal); J43.9 Emphysema, unspecified; G40.909 Epilepsy, unspecified, not intractable, without status epilepticus; I10 Essential (primary) hypertension; Y90.0 Blood alcohol level of less than 20 mg/100 ml
CPT/HCPCS: 99285

== ENCOUNTER 2019-08-25 19:44 | Emergency (ER) | payer MEDICARE, MEDICAID ==
[~2019-08-25] VITALS: Ht 170.2 cm; Wt 73.4 kg
--- NOTE | 2019-08-25 19:52 | NUR ---
TASK RN: [facility] FOR ETOH INTOXICATION, UNABLE TO AMBULATE WITH STEADY GAIT ON SCENE PER EMS. PT REPORTS "I DRANK SOME BEERS AND MAYBE MORE ALCOHOL, MY RIGHT SHOULDER KIND OF HURTS, I DIDN'T FALL OR DO ANYTHING TO IT BUT IT HURTS." DENIES FALL, INJURY, HITTING HEAD OR ANY LOC. CMS INTACT. PULSE NORMAL AND STRONG. NO SWELLING OR ECCYMOSIS NOTED. CONT PULSE OX, BP MONITORS APPLIED. VSS. CALL LIGHT IN REACH. FALL PRECAUTIONS IN PLACE. SIDE RAILS UPX2. A&OX4. DR. LYONS AT BEDSIDE FOR EVALUATION. AWAITING ORDERS.
--- NOTE | 2019-08-25 19:59 | NUR ---
BEDSIDE REPORT AND TRANSFER OF CARE TO PRIMARY RN MEERA
[2019-08-25 22:44] VITALS: BP 111/62
--- NOTE | 2019-08-26 00:04 | NUR ---
PT CONTINUES TO PULL PULSE OXIMETER OFF. PT VSS. PT ASLEEP IN [facility] AT THIS TIME; CLINT.
--- NOTE | 2019-08-26 01:23 | NUR ---
REPORT OF PT TO LUNCH PIPO CHILDERS.
--- NOTE | 2019-08-26 01:35 | NUR ---
TASK RN: PT RESTING IN GURNEY W/ EYES CLOSED. EVEN/REGULAR RESPIRATIONS NOTED.
--- NOTE | 2019-08-26 02:54 | NUR ---
PT AWAKE AND ALERT AND ORIENTED X 4. PT REQUESTING TAXI VOUCHER TO LONG-TERM. TAXI VOUCHER PROVIDED PER REQUEST. PT AMBULATES TO REGISTRATION DESK FOR D/C FROM HOSPITAL AT THIS TIME. PT DENIES ANY OTHER NEEDS PERTAINING TO THIS VISIT.
== END 2019-08-26 02:56 | disposition home or self-care (01) ==
LOC: ED 20:44
DX: S46.911A Strain of unspecified muscle, fascia and tendon at shoulder and upper arm level, right arm, initial encounter (principal); F10.220 Alcohol dependence with intoxication, uncomplicated; I10 Essential (primary) hypertension; X58.XXXA Exposure to other specified factors, initial encounter; Y93.89 Activity, other specified; Y92.89 Other specified places as the place of occurrence of the external cause; Y99.8 Other external cause status; Y90.0 Blood alcohol level of less than 20 mg/100 ml
CPT/HCPCS: 99283

== ENCOUNTER 2019-08-27 01:05 | Emergency (ER) | payer MEDICARE, MEDICAID ==
[~2019-08-27] VITALS: Ht 180.3 cm; Wt 80.0 kg
--- NOTE | 2019-08-27 01:09 | NUR ---
Pt presents to ed c/o gross etoh intoxication. States "i drank a lot more than i can remember" tonight. Pt seen here frequently for hx of same. Pt states wants to detox from etoh. Very mild tremors noted in hands, but no other signs of d/t noted at this time. Vss. Call light within reach. Pt asleep shortly after conclusion of exam. WCTM.
--- NOTE | 2019-08-27 01:52 | NUR ---
Pt sleeping comfortably on gurney. Rr even and unlabored. Nadn.
--- NOTE | 2019-08-27 02:38 | NUR ---
Pt sleeping comfortably on gurney. Rr even and unlabored. Nadn.
--- NOTE | 2019-08-27 02:55 | NUR ---
Pt report to Jacquelin grant.
--- NOTE | 2019-08-27 02:56 | NUR ---
REPORT RECEIVED FROM PIPO NIETO. PLAN OF CARE DISCUSSED. PATIENT RESTING ON GURNEY, RESPIRATIONS EVEN AND UNLABORED.
--- NOTE | 2019-08-27 03:53 | NUR ---
PATIENT SLEEPING ON GURNEY, RESPIRATIONS EVEN AND UNLABORED. PATIENT TOOK SPO2 AND BP CUFFS OFF
--- NOTE | 2019-08-27 04:51 | NUR ---
PATIENT SLEEPING ON GURNEY, RESPIRATIONS EVEN AND UNLABORED. PATIENT TOOK SPO2 AND REFUSES TO PUT BACK ON
--- NOTE | 2019-08-27 05:14 | NUR ---
PATIENT NOT STABLE ON FEET AT THIS TIME. PATIENT BACK IN BED AT THIS TIME, URINAL PROVIDED AT BEDSIDE
--- NOTE | 2019-08-27 06:09 | NUR ---
PATIENT SLEEPING IN GURNEY, PATIENT RIPPED MONITORING DEVICES OFF. RESPIRATIONS EVEN AND UNLABORED.
--- NOTE | 2019-08-27 06:54 | NUR ---
REPORT GIVEN TO PIPO CORCORAN. PLAN OF CARE DISCUSSED
--- NOTE | 2019-08-27 06:57 | NUR ---
REPORT RECEIVED FROM CARLITOS FOSS.
--- NOTE | 2019-08-27 07:34 | NUR ---
pt sleeping on gurney. resps even and unlabored. bp/spo2 monitors in place. 2l oxy by nc placed d/t spo2 88%. spo2 above 92% with 2l.
--- NOTE | 2019-08-27 08:40 | NUR ---
pt sleeping on gurney. resps even and unlabored. bp/spo2 monitors in place. call light within reach.
--- NOTE | 2019-08-27 08:59 | NUR ---
PATIENT NOT STABLE ON FEET AT THIS TIME. PATIENT BACK IN BED. BP/SPO2 MONITORS IN PLACE. CALL LIGHT WITHIN REACH.
--- NOTE | 2019-08-27 09:28 | NUR ---
REPORT GIVEN TO JESSICA FOSS.
--- NOTE | 2019-08-27 09:34 | NUR ---
report received from PIPO Summers at bedside. pt a&o, resps even and unlabored. spo2 94% on room air. pt informed of POC to discharge when he is safe to ambulate. pt verbalizes understanding.
--- NOTE | 2019-08-27 09:45 | NUR ---
PT GOT OUT OF BED, DRESSED SELF, FOUND BY THIS RN AT DISCHARGE AREA. PT AMBULATORY WITH STEADY GAIT. PT A&OX4, RESPS EVEN AND UNLABORED. PT GIVEN BUS PASSES AND REFERRED TO LOCAL DETOX FACILITIES AND DRUG/ETOH RESOURCES. PT INSTRUCTED TO FOLLOW UP WITH MENTAL HEALTH/DETOX FACILITIES HEAVENLY FOR SAFE DETOX IF HE IS QUITTING ETOH, PT VERBALIZES UNDERSTANDING AND VERBALIZES PLAN TO PRESENT TO [facility] FOR DETOX. CLINT BRANDT CT.
[2019-08-27 09:54] VITALS: BP 112/70
== END 2019-08-27 09:55 | disposition home or self-care (01) ==
LOC: ED 05:16
DX: F10.120 Alcohol abuse with intoxication, uncomplicated (principal); Z72.9 Problem related to lifestyle, unspecified; G40.909 Epilepsy, unspecified, not intractable, without status epilepticus; F17.200 Nicotine dependence, unspecified, uncomplicated; Y90.9 Presence of alcohol in blood, level not specified
CPT/HCPCS: 99285

== ENCOUNTER 2019-09-13 20:24 | Emergency (ER) | payer MEDICARE, MEDICAID ==
[~2019-09-13] VITALS: Ht 177.8 cm; Wt 75.0 kg
--- NOTE | 2019-09-13 21:23 | NUR ---
ERP at bedside.
--- NOTE | 2019-09-13 22:41 | NUR ---
pt sleeping soundly with no complaints
--- NOTE | 2019-09-13 23:37 | NUR ---
pt sleeping soundly with no complaints
--- NOTE | 2019-09-14 01:05 | NUR ---
pt sleeping soundly with no complaints
--- NOTE | 2019-09-14 04:52 | NUR ---
patient ambualted to bathroom with steady gait.
--- NOTE | 2019-09-14 05:02 | NUR ---
patient discharged with instruction. verbalized undertanding. cab voucher provided.
[2019-09-14 05:07] VITALS: BP 119/68
== END 2019-09-14 05:10 | disposition home or self-care (01) ==
LOC: ED 09-14 04:50
DX: F10.220 Alcohol dependence with intoxication, uncomplicated (principal); I10 Essential (primary) hypertension; F20.9 Schizophrenia, unspecified; F17.200 Nicotine dependence, unspecified, uncomplicated; Y90.9 Presence of alcohol in blood, level not specified
CPT/HCPCS: 99283

== ENCOUNTER 2019-09-17 02:05 | Emergency (ER) | payer MEDICARE, MEDICAID ==
[~2019-09-17] VITALS: Ht 172.7 cm; Wt 72.7 kg
--- NOTE | 2019-09-17 06:13 | NUR ---
MULTIPLE ATTEMPTS MADE TO AMBULATE PT. HE CONTINUES TO BE VERY UNSTEADY. NOT SAFE FOR DC AT THIS TIME. JOCELYN 0.288. PT PLACED BACK IN BED. SIDE RAILS UP FOR SAFETY.
--- NOTE | 2019-09-17 06:59 | NUR ---
Report receive from Nelson FOSS, pt care assumed at this time. NAD, call light within reach, denies additional needs, even and unlabored respirations noted, VINNY.
--- NOTE | 2019-09-17 07:00 | NUR ---
See downtime paperwork for charting for previous shift's charting.
--- NOTE | 2019-09-17 08:00 | NUR ---
Late Entry: Pt resting in gurney, eyes closed, even and unlabored respirations, call light within reach, NAD, WCTM.
--- NOTE | 2019-09-17 08:48 | NUR ---
Pt resting in gurney, eyes closed, even and unlabored respirations, call light within reach, NAD, given urinal to use restroom, WCTM.
--- NOTE | 2019-09-17 10:12 | NUR ---
Had pt stand at bedside, was wobbly and unstable, helped back to [place]hara, pt awake, place on 1L O2 to maintian oxygenation status. NAD, denies additional needs at this time. WCEMEKA.
[2019-09-17 10:53] VITALS: BP 122/66
--- NOTE | 2019-09-17 10:53 | NUR ---
pt given mickey crackers, water and apple juice for comfort. Sitting up in gurney. NAD, denies additional needs, even and unlabored respirations, call light within reach, WCTM.
--- NOTE | 2019-09-17 11:39 | NUR ---
Pt departing ED w/ a steady gait
== END 2019-09-17 11:40 | disposition home or self-care (01) ==
LOC: ED 04:15
DX: F10.120 Alcohol abuse with intoxication, uncomplicated (principal); Y90.9 Presence of alcohol in blood, level not specified
CPT/HCPCS: 99285

== ENCOUNTER 2019-09-17 18:50 | Emergency (ER) | payer MEDICARE, MEDICAID ==
[~2019-09-17] VITALS: Ht 170.2 cm; Wt 69.3 kg
--- NOTE | 2019-09-17 20:19 | NUR ---
PT REPORT TO OSCAR BALDWIN RN. PT CARE TRANSFERRED.
--- NOTE | 2019-09-17 21:00 | NUR ---
PT ASLEEP, SIDE RAILS UP X2, CALL LIGHT W/IN REACH.
--- NOTE | 2019-09-17 22:50 | NUR ---
PT ASLEEP, EVEN CHEST RISE & FALL NOTED, SIDE RAILS UP X2, CALL LIGHT W/IN REACH.
--- NOTE | 2019-09-17 23:03 | NUR ---
REPORT OF PT FROM PIPO FUENTES AND ASSUMING CARE OF PT AT THIS TIME.
--- NOTE | 2019-09-18 00:24 | NUR ---
PT VSS AND UPDATED IN EMR. PT ASLEEP IN [facility] AT THIS TIME;
--- NOTE | 2019-09-18 01:22 | NUR ---
RN attempted to walk patient, patient unsteady on feet, able to ambulated 2-3 steps.
[2019-09-18 02:54] VITALS: BP 121/70
--- NOTE | 2019-09-18 02:55 | NUR ---
PT AMBULATES TO REGISTRATION DESK AT THIS TIME WITH STEADY GAIT. PT DENIES ANY OTHER NEEDS PERTAINING TO THIS VISIT. PT QUESTIONS ANSWERED. VSS.
== END 2019-09-18 02:58 | disposition home or self-care (01) ==
LOC: ED 09-18 00:09
DX: F10.229 Alcohol dependence with intoxication, unspecified (principal); G92 Toxic encephalopathy; I10 Essential (primary) hypertension; F20.9 Schizophrenia, unspecified; G40.909 Epilepsy, unspecified, not intractable, without status epilepticus; F17.200 Nicotine dependence, unspecified, uncomplicated; Y90.9 Presence of alcohol in blood, level not specified
CPT/HCPCS: 99285

== ENCOUNTER 2019-10-02 14:54 | Emergency (ER) | payer MEDICARE, MEDICAID ==
[~2019-10-02] VITALS: Ht 165.1 cm; Wt 85.0 kg
--- NOTE | 2019-10-02 15:02 | NUR ---
BIB EMS FOR FALL WITH LACERATION TO LEFT EYEBROW. NO LOC. PT DRANK PINT OF VODKA TODAY.
[2019-10-02] MEDS ORDERED: LIDOCAINE 1%, 10ML INFIL ONE (15:30)
--- NOTE | 2019-10-02 16:00 | NUR ---
PT WOUND WASHED OUT.
--- NOTE | 2019-10-02 17:16 | NUR ---
PT GIVEN MEAL TRAY,
--- NOTE | 2019-10-02 17:57 | NUR ---
PT AMBULATING W STEADY ASSIST. READY FOR DC
[2019-10-02 17:59] VITALS: BP 135/82
--- NOTE | 2019-10-02 18:22 | NUR ---
Patient/Caregiver given discharge instructions and they have confirmed that they understand the instructions. Patient ambulatory with steady gait.
== END 2019-10-02 18:23 | disposition home or self-care (01) ==
LOC: ED 15:18
DX: F10.229 Alcohol dependence with intoxication, unspecified (principal); S09.90XA Unspecified injury of head, initial encounter; G40.909 Epilepsy, unspecified, not intractable, without status epilepticus; Y90.0 Blood alcohol level of less than 20 mg/100 ml; X58.XXXA Exposure to other specified factors, initial encounter; Y93.89 Activity, other specified; Y92.89 Other specified places as the place of occurrence of the external cause; Y99.8 Other external cause status
CPT/HCPCS: 70450; 99284

== ENCOUNTER 2019-10-03 15:33 | Emergency (ER) | payer MEDICARE, MEDICAID ==
[~2019-10-03] VITALS: Ht 170.2 cm; Wt 76.2 kg
--- NOTE | 2019-10-03 16:01 | NUR ---
PT BIB [facility] CO OF RIGHT SHOULDER PAIN. NO DEFORMITY NOTED. PT WAS ABLE TO LIFT ARMS OVERHEAD AND REMOVE T SHIRT ON HIS OWN. PT ADMITED TO DRINKING TODAY AND APPEARS INTOXICATED
--- NOTE | 2019-10-03 16:44 | NUR ---
PT TO X RAY AT THIS TIME
[2019-10-03 19:21] VITALS: BP 116/58
--- NOTE | 2019-10-03 19:21 | NUR ---
PT IS RESTING IN [facility]. TV IS ON. NAD. VSS. NO NEEDS AT THIS TIME
--- NOTE | 2019-10-03 20:30 | NUR ---
PT ESCORTED TO EXIT. PT AMBUALTED WITH A STEADY GATE
== END 2019-10-03 20:32 | disposition home or self-care (01) ==
LOC: ED 15:49
DX: M77.9 Enthesopathy, unspecified (principal); F10.129 Alcohol abuse with intoxication, unspecified; F20.9 Schizophrenia, unspecified; I10 Essential (primary) hypertension; Y90.9 Presence of alcohol in blood, level not specified
CPT/HCPCS: 99283

== ENCOUNTER 2019-12-03 01:44 | Emergency (ER) | payer MEDICARE, MEDICAID ==
[~2019-12-03] VITALS: Ht 170.2 cm; Wt 70.0 kg
--- NOTE | 2019-12-03 05:03 | NUR ---
REPORT FROM ODILIA FOSS.
--- NOTE | 2019-12-03 05:55 | NUR ---
PT UNABLE TO AMBULATE AT THIS TIME, PT STATES "I CAN'T WALK RIGHT NOW".
--- NOTE | 2019-12-03 06:43 | NUR ---
RESTING ON GURNEY. VSS. SAFETY FALL PRECAUTIONS IN PLACE.
--- NOTE | 2019-12-03 06:56 | NUR ---
REPORT GIVEN TO YOKO FOSS.
--- NOTE | 2019-12-03 07:04 | NUR ---
REPORT RECEIVED FROM JOSUÉ FOSS. PT SLEEPING IN BED, EASY TO ROUSE. PT SAT UP IN BED. CURRENTLY ON ROOM AIR, SAT >91%. FOOD TRAY ORDERED. WILL ATTEMPT TO AMBULATE AGAIN AFTER MEAL TRAY. PT REMAINS ON MONITORS. CONT TO MONITOR.
--- NOTE | 2019-12-03 07:22 | NUR ---
MEAL TRAY ORDERED.
[2019-12-03 08:00] VITALS: BP 115/79
--- NOTE | 2019-12-03 08:26 | NUR ---
PT UP TO BATHROOM, STANDBY ASSIST FOR AMBULATION. PT ABLE TO CARE FOR SELF. OK FOR D/C. PT ATE MEAL TRAY.
--- NOTE | 2019-12-03 08:39 | NUR ---
PT D/C'D HOME TO [facility]. PT HAS ALL OWN BELONGINGS, STEADY GAIT. PT ASSISTED TO D/C IN W/C. PT REFUSED D/C PAPERWORK.
== END 2019-12-03 08:41 | disposition home or self-care (01) ==
LOC: ED 04:35
DX: F10.120 Alcohol abuse with intoxication, uncomplicated (principal); F17.210 Nicotine dependence, cigarettes, uncomplicated; J43.9 Emphysema, unspecified; I10 Essential (primary) hypertension; Z72.9 Problem related to lifestyle, unspecified; Y90.9 Presence of alcohol in blood, level not specified
CPT/HCPCS: 99285; 99406

== ENCOUNTER 2019-12-15 16:49 | Emergency (ER) | payer MEDICARE, MEDICAID ==
[~2019-12-15] VITALS: Ht 170.2 cm; Wt 68.2 kg
[2019-12-15 17:38] LABS: BASOPHILS # (AUTO) 0.02 x10^3/uL (0-0.1); BASOPHILS % (AUTO) 0 % (0-1); EOSINOPHILS # (AUTO) 0.15 x10^3/uL (0-0.4); EOSINOPHILS % (AUTO) 3 % (1-7); LYMPHOCYTES # (AUTO) 1.07 x10^3/uL (1-3.4); LYMPHOCYTES % (AUTO) 24 % (22-44); MD NO; MEAN CORPUSCULAR HEMOGLOBIN 30.6 pg (27.5-34.5); MEAN CORPUSCULAR HGB CONC 33.4 g/dL (33.2-36.2); MEAN CORPUSCULAR VOLUME 91.4 fL (81-97); MEAN PLATELET VOLUME 8.3 fL (7.4-10.4); MONOCYTES # (AUTO) 0.73 x10^3/uL (0.2-0.8); MONOCYTES % (AUTO) 16 % (2-9); NEUTROPHILS # (AUTO) 2.47 x10^3/uL (1.8-6.8); NEUTROPHILS % (AUTO) 56 % (42-75); PLATELET COUNT 105 x10^3/uL (130-400); RED CELL DISTRIBUTION WIDTH 16.2 % (9.4-14.8)
[2019-12-15 17:51] LABS: ALANINE AMINOTRANSFERASE 128 U/L (12-78); ALBUMIN 3.7 g/dL (3.4-5.0); ANION GAP 9 mmol/L (5-15); CALCIUM 8.5 mg/dL (8.5-10.1); CHLORIDE 107 mmol/L (98-107); CREATININE 0.75 mg/dL (0.7-1.3)
[2019-12-15 17:56] LABS: ALKALINE PHOSPHATASE 57 U/L (45-117); BILIRUBIN,TOTAL 0.7 mg/dL (0.2-1.0); TROPONIN I < 0.015 ng/mL (0.000-0.045)
--- NOTE | 2019-12-15 18:06 | NUR ---
URINE SAMPLE WALKED TO LAB. PT REQUESTING "I NEED AN IV AND AT LEAST 0.5MG OF ATIVAN AND 5MG OF LIBRIUM NOW", RN EDUCATED PT ON NEED FOR LABS AND EVAULATION BY . PT DEMONSTRATED UNDERSTANDING, BOTTLE OF WATER GIVEN TO PT.
[2019-12-15 18:10] VITALS: BP 132/74
[2019-12-15 18:23] LABS: MICROSCOPIC AUTO
[2019-12-15] MEDS ORDERED: LORazepam 1MG TABLET PO ONE (19:00)
== END 2019-12-15 19:09 | disposition home or self-care (01) ==
LOC: ED 18:27
DX: R31.29 Other microscopic hematuria (principal); F10.231 Alcohol dependence with withdrawal delirium; R00.0 Tachycardia, unspecified; I10 Essential (primary) hypertension; J43.9 Emphysema, unspecified; F17.200 Nicotine dependence, unspecified, uncomplicated; G40.909 Epilepsy, unspecified, not intractable, without status epilepticus; Y90.9 Presence of alcohol in blood, level not specified
CPT/HCPCS: 36415; 71045; 80053; 81001; 83690; 83880; 84484; 85025; 93005; 99285

== ENCOUNTER 2020-01-02 07:23 | Emergency (ER) | payer MEDICARE, MEDICAID ==
[~2020-01-02] VITALS: Ht 170.2 cm; Wt 75.0 kg
[2020-01-02] MEDS ORDERED: SODIUM CHLORIDE 0.9% 1,000ML IVBOLUS ONE (07:30)
[2020-01-02] MEDS ORDERED: LORazepam 2 MG/ML, 1ML IVPush ONE (07:30)
[2020-01-02] MEDS ORDERED: SODIUM CHLORIDE FLUSH 10ML SYR IVF ONE (07:30)
[2020-01-02] MEDS ORDERED: ONDANSETRON 2MG/ML, 2ML IVPush ONE (07:30)
--- NOTE | 2020-01-02 07:32 | NUR ---
BIB EMS FOR ALCHOLOL WITHDRAWAL. PT STATES HE DRINKS ABOUT 200 OZ A DAY OF BEER. LAST DRINK THIS AM. PT STATES HE IS SWEATING, NAUSEOUS, TREMULOUS. DENIES CP, SOB OR COUGH. [facility]. DRINKS BECAUSE OF HIS SHOULDER PAIN
[2020-01-02] MEDS ORDERED: LORazepam 2 MG/ML, 1ML ONE (07:48)
[2020-01-02] MEDS ORDERED: ONDANSETRON 2MG/ML, 2ML ONE (07:48)
[2020-01-02] MEDS ORDERED: PLEASE ENTER HEIGHT AND WEIGHT MC SCH (08:00)
[2020-01-02 08:07] LABS: ALANINE AMINOTRANSFERASE 92 U/L (12-78); ALBUMIN 3.8 g/dL (3.4-5.0); ANION GAP 9 mmol/L (5-15); CALCIUM 8.4 mg/dL (8.5-10.1); CHLORIDE 108 mmol/L (98-107); CREATININE 0.72 mg/dL (0.7-1.3)
[2020-01-02 08:09] LABS: ALKALINE PHOSPHATASE 53 U/L (45-117); BILIRUBIN,TOTAL 0.6 mg/dL (0.2-1.0)
[2020-01-02 08:16] LABS: HEMOGRAM NOTE RECHECKED
[2020-01-02 08:26] LABS: BASOPHILS # (AUTO) 0.01 x10^3/uL (0-0.1); BASOPHILS % (AUTO) 0 % (0-1); EOSINOPHILS # (AUTO) 0.06 x10^3/uL (0-0.4); EOSINOPHILS % (AUTO) 1 % (1-7); LYMPHOCYTES # (AUTO) 0.92 x10^3/uL (1-3.4); LYMPHOCYTES % (AUTO) 16 % (22-44); MD SCAN; MEAN CORPUSCULAR HEMOGLOBIN 30.9 pg (27.5-34.5); MEAN CORPUSCULAR HGB CONC 33.8 g/dL (33.2-36.2); MEAN CORPUSCULAR VOLUME 91.5 fL (81-97); MEAN PLATELET VOLUME 8.3 fL (7.4-10.4); MONOCYTES # (AUTO) 0.74 x10^3/uL (0.2-0.8); MONOCYTES % (AUTO) 13 % (2-9); NEUTROPHILS # (AUTO) 3.92 x10^3/uL (1.8-6.8); NEUTROPHILS % (AUTO) 69 % (42-75); PLATELET COUNT 76 x10^3/uL (130-400); RED BLOOD COUNT 4.99 x10^6/uL (4.38-5.82); RED CELL DISTRIBUTION WIDTH 16.7 % (9.4-14.8)
--- NOTE | 2020-01-02 09:41 | NUR ---
Patient/Caregiver given discharge instructions and they have confirmed that they understand the instructions. Patient ambulatory with steady gait.
[2020-01-02 09:42] VITALS: BP 145/80
== END 2020-01-02 09:49 | disposition home or self-care (01) ==
LOC: ED 08:02
DX: J20.9 Acute bronchitis, unspecified (principal); F10.10 Alcohol abuse, uncomplicated; I10 Essential (primary) hypertension; Y90.9 Presence of alcohol in blood, level not specified
CPT/HCPCS: 36415; 71046; 80053; 85025; 96374; 96375; 99284; J2060; J2405; J7030

== ENCOUNTER 2020-03-07 23:47 | Emergency (ER) | payer MEDICARE, MEDICAID ==
[~2020-03-07] VITALS: Ht 167.6 cm; Wt 65.0 kg
--- NOTE | 2020-03-08 00:07 | NUR ---
Patient BIB [facility] c/o ETOH detox. Patient states he drinks "more than would kill you. I'm depressed and I can't masterbate to pornography." Patient states he is currently intoxicated but needs to stop drinking. Patient is in NAD. Respirations even and unlabored. ETOH odor noted.
[2020-03-08 00:31] LABS: MICROSCOPIC AUTO
[2020-03-08 00:40] LABS: AMPHETAMINE SCREEN, URINE Negative (Negative); BARBITURATE SCREEN, URINE Negative (Negative); BENZODIAZEPINE SCREEN, URINE Negative (Negative); CANNABINOID SCREEN, URINE Negative (Negative); COCAINE SCREEN, URINE Negative (Negative); METHADONE SCREEN, URINE Negative (Negative); OPIATE SCREEN, URINE Negative (Negative)
[2020-03-08 01:12] LABS: ALBUMIN 3.6 g/dL (3.4-5.0); ANION GAP 7 mmol/L (5-15); CALCIUM 8.6 mg/dL (8.5-10.1); CHLORIDE 111 mmol/L (98-107); CREATININE 0.71 mg/dL (0.7-1.3); MEAN CORPUSCULAR HEMOGLOBIN 30.9 pg (27.5-34.5); MEAN CORPUSCULAR HGB CONC 33.7 g/dL (33.2-36.2); MEAN CORPUSCULAR VOLUME 91.7 fL (81-97); MEAN PLATELET VOLUME 8.4 fL (7.4-10.4); PLATELET COUNT 96 x10^3/uL (130-400); RED BLOOD COUNT 5.22 x10^6/uL (4.38-5.82); RED CELL DISTRIBUTION WIDTH 14.9 % (9.4-14.8); SALICYLATE LEVEL 4.1 mg/dL (2.8-20.0)
[2020-03-08 01:24] LABS: BASOPHILS # (AUTO) 0.03 x10^3/uL (0-0.1); BASOPHILS % (AUTO) 1 % (0-1); EOSINOPHILS # (AUTO) 0.11 x10^3/uL (0-0.4); EOSINOPHILS % (AUTO) 2 % (1-7); LYMPHOCYTES # (AUTO) 2.32 x10^3/uL (1-3.4); LYMPHOCYTES % (AUTO) 31 % (22-44); MD SCAN; MONOCYTES # (AUTO) 0.79 x10^3/uL (0.2-0.8); MONOCYTES % (AUTO) 11 % (2-9); NEUTROPHILS # (AUTO) 4.28 x10^3/uL (1.8-6.8); NEUTROPHILS % (AUTO) 57 % (42-75)
--- NOTE | 2020-03-08 01:25 | NUR ---
Report given to PIPO Sanchez. Patient care transferred.
--- NOTE | 2020-03-08 01:34 | NUR ---
REPORT FROM ODILIA FOSS. PT SLEEPING. EVEN RISE AND FALL OF CHEST OBSERVED. SITTER IN VIEW OF PT
--- NOTE | 2020-03-08 02:42 | NUR ---
PT RESTING. PT UNABLE TO AMBULATE. WILL REASSESS AT A LATER TIME.
--- NOTE | 2020-03-08 04:32 | NUR ---
PT SLEEPING. EVEN RISE AND FALL OF CHEST OBSERVED. SITTER IN VIEW OF PT
--- NOTE | 2020-03-08 04:50 | NUR ---
PT VERBALIZED UNDERSTANDING OF DISCHARGE INSTRUTIONS. PT REFUSING TO GET UP AND LEAVE. SECURITY CALLED TO ASSIST WITH DISCHARGE. CAB VOUCHER GIVEN FOR SAFE DISCHARGE.
[2020-03-08 04:53] VITALS: BP 131/72
== END 2020-03-08 04:55 | disposition home or self-care (01) ==
LOC: ED 03-08 03:14
DX: F10.120 Alcohol abuse with intoxication, uncomplicated (principal); Y90.9 Presence of alcohol in blood, level not specified
CPT/HCPCS: 36415; 80048; 80307; 81001; 82040; 85025; 99283

== ENCOUNTER 2020-03-14 12:39 | Emergency (ER) | payer MEDICARE, MEDICAID ==
[~2020-03-14] VITALS: Ht 167.6 cm; Wt 65.6 kg
--- NOTE | 2020-03-14 12:57 | NUR ---
Pt bib ems for etoh withdrawal. Pt reports he has gone 2 days without drinking but had a sip of alcohol this morning at 0230. Pt has chronic etoh abuse hx. Pt denies any trauma. Pt reports he had seizure 18 years ago from alcohol intoxication. pt reports he does not take his olanzipine because it makes him too sleepy. Pt reports that he really wants to quit but no one helps him. Pt connected to monitors and call light in reach. Awaiting further orders.
--- NOTE | 2020-03-14 13:42 | NUR ---
Pt requesting ativan and librium to help with DTs.
[2020-03-14] MEDS ORDERED: CHLORDIAZEPOXIDE 25 MG CAPSULE PO ONE (14:00)
--- NOTE | 2020-03-14 14:01 | NUR ---
PT. REFUSED X-RAY AT 1357.
[2020-03-14 14:14] LABS: ALANINE AMINOTRANSFERASE 112 U/L (12-78); ALBUMIN 3.8 g/dL (3.4-5.0); ANION GAP 9 mmol/L (5-15); CALCIUM 8.8 mg/dL (8.5-10.1); CHLORIDE 111 mmol/L (98-107); CREATININE 0.75 mg/dL (0.7-1.3)
[2020-03-14 14:16] LABS: ALKALINE PHOSPHATASE 60 U/L (45-117); BILIRUBIN,TOTAL 0.5 mg/dL (0.2-1.0); TOTAL PROTEIN 7.7 g/dL (6.4-8.2)
[2020-03-14] MEDS ORDERED: CHLORDIAZEPOXIDE 25 MG CAPSULE ONE (14:16)
[2020-03-14 14:22] LABS: BASOPHILS # (AUTO) 0.01 x10^3/uL (0-0.1); BASOPHILS % (AUTO) 0 % (0-1); EOSINOPHILS # (AUTO) 0.07 x10^3/uL (0-0.4); EOSINOPHILS % (AUTO) 1 % (1-7); LYMPHOCYTES # (AUTO) 0.99 x10^3/uL (1-3.4); LYMPHOCYTES % (AUTO) 15 % (22-44); MD SCAN; MEAN CORPUSCULAR HEMOGLOBIN 30.5 pg (27.5-34.5); MEAN CORPUSCULAR HGB CONC 32.9 g/dL (33.2-36.2); MEAN CORPUSCULAR VOLUME 92.7 fL (81-97); MEAN PLATELET VOLUME 8.1 fL (7.4-10.4); MONOCYTES # (AUTO) 0.64 x10^3/uL (0.2-0.8); MONOCYTES % (AUTO) 9 % (2-9); NEUTROPHILS # (AUTO) 5.09 x10^3/uL (1.8-6.8); NEUTROPHILS % (AUTO) 75 % (42-75); PLATELET COUNT 77 x10^3/uL (130-400); RED BLOOD COUNT 5.38 x10^6/uL (4.38-5.82); RED CELL DISTRIBUTION WIDTH 15.2 % (9.4-14.8)
--- NOTE | 2020-03-14 14:27 | NUR ---
Pt medicated for DTs that are not present with Librium. Pt took off all monitoring equipment and threw ekg stickers on the floor. Pt asked to please call RN when needing to throw trash away, RN is happy to help as adhesive can damage the floors and be difficult to remove.
--- NOTE | 2020-03-14 15:47 | NUR ---
Pt unable to ambulate, remains intoxicated. Pt will be roat tested in 30 minutes.
[2020-03-14 15:48] VITALS: BP 111/69
--- NOTE | 2020-03-14 16:19 | NUR ---
Pt very angry that he is not getting IV ativan, once again pulled off all vitals monitors and started throwing things. Reporting he was mad because he only got one pill this whole time. Pt reports this place is a piece of sh*& and I want to leave. Pt ambulating well. pt given socks and cab voucher. When handing the cab voucher to patient pt snatched out of RN'S hand and said "give me that sh&* something i can actually use" pt needed iv puncture site redressed and refusing and becoming hostile towards female EMTDinh Wallace. Pt helped out to lobby and informed that the taxi would be there for him in 10 minutes. Pt called RN various names and said Im just gonna go drink. Pt not cooperative. Patient/Caregiver given discharge instructions and they have refused to confirm that they understand the instructions. Patient ambulatory with steady gait. Pt given cab voucher for safe dc.
== END 2020-03-14 16:25 | disposition home or self-care (01) ==
LOC: ED 12:45
DX: F20.9 Schizophrenia, unspecified (principal); G40.909 Epilepsy, unspecified, not intractable, without status epilepticus; R45.4 Irritability and anger; R94.31 Abnormal electrocardiogram [ECG] [EKG]; J43.9 Emphysema, unspecified; I10 Essential (primary) hypertension; Y90.9 Presence of alcohol in blood, level not specified
CPT/HCPCS: 36415; 80053; 80307; 85025; 93005; 99284

== ENCOUNTER 2020-07-09 21:46 | Inpatient (IN) | payer MEDICARE, MEDICAID ==
[~2020-07-09] VITALS: Ht 170.2 cm; Wt 78.5 kg
[2020-07-09] MEDS ORDERED: ALBUTEROL SULFATE 2.5 MG/3 ML NPPB ONE (22:00)
[2020-07-09] MEDS ORDERED: ALBUTEROL SULFATE 2.5 MG/3 ML ONE (22:04)
--- NOTE | 2020-07-09 22:06 | NUR ---
PT BIB EMS. PT STATED TRIPPING AND TWISTING LEFT ANKLE. PT ABLE TO WALK TO ROOM. PT ADMITS TO ETOH TODAY, ABOUT A GALLON AND A HALF OF WISKEY AND BEER. PT STATES SORE THROAT, DIAHARREA STARTING TODAY. NO KNOWN EXPOSURE. PT SAT-ING IN LOW 90'S AND PLACED ON 1L 02. PT IN GOWN AND ON CONTINUOUS PULSE OX AND BP CUFF. XRAY AT BEDSIDE AT THIS TIME
--- NOTE | 2020-07-09 23:08 | NUR ---
PT DOZING INTERMITTENTLY. PULSE OX WILL RANGE BETWEEN 86-90% ON RA. PT PLACED ON 1.5 L 02.
--- NOTE | 2020-07-09 23:32 | NUR ---
Covid swab [employer] collected and walked to lab by this nurse.
[2020-07-10 00:03] LABS: BASOPHILS % (AUTO) 1 % (0-1); EOSINOPHILS % (AUTO) 1 % (1-7); LYMPHOCYTES % (AUTO) 20 % (22-44); MEAN CORPUSCULAR HEMOGLOBIN 31.3 pg (27.5-34.5); MEAN CORPUSCULAR HGB CONC 34.5 g/dL (33.2-36.2); MEAN PLATELET VOLUME 7.6 fL (7.4-10.4); MONOCYTES % (AUTO) 15 % (2-9); NEUTROPHILS % (AUTO) 64 % (42-75); PLATELET COUNT 261 x10^3/uL (130-400); RED BLOOD COUNT 4.39 x10^6/uL (4.38-5.82); RED CELL DISTRIBUTION WIDTH 14.1 % (9.4-14.8)
--- NOTE | 2020-07-10 00:03 | NUR ---
PT VERY FIGITY WHEN ATTEMPTING EKG, AND HAD TO HAVE 2 PEOPLE IN ROOM TO MAKE SURE HE DOES NOT TAKE LEADS OFF. PT VERY DROWSY AND SNORING. IV PLACED, AND LABS DRAWN. CONTINUOUS PULSE OX IN PLACE. PT AT 4L 02 WHILE SLEEPING TO KEEP O2 IN 90'S
[2020-07-10 00:04] LABS: MD NO
[2020-07-10 00:10] LABS: ALANINE AMINOTRANSFERASE 34 U/L (12-78); ALBUMIN 3.3 g/dL (3.4-5.0); ANION GAP 7 mmol/L (5-15); CHLORIDE 110 mmol/L (98-107); CREATININE 0.88 mg/dL (0.7-1.3)
[2020-07-10 00:15] LABS: ALKALINE PHOSPHATASE 59 U/L (45-117); BILIRUBIN,TOTAL 0.2 mg/dL (0.2-1.0); TOTAL PROTEIN 6.9 g/dL (6.4-8.2); TROPONIN I < 0.015 ng/mL (0.000-0.045)
[2020-07-10] MEDS ORDERED: NALOXONE 1 MG/ML, 2ML ONE (01:10)
--- NOTE | 2020-07-10 01:15 | NUR ---
Covering primary for break. Pt remains with decrease LOC, requires loud verbal touch to wake up, wakes up for few minutes falls asleep, pt is slightly diaphoretic, no fever. IV narcan 1mg, with no change.
[2020-07-10] MEDS ORDERED: NALOXONE 1 MG/ML, 2ML IVPush ONE (01:30)
--- NOTE | 2020-07-10 01:37 | NUR ---
To CT with tech.
[2020-07-10] MEDS ORDERED: OMNIPAQUE 350 MG/ML, 100ML BOTTLE ONE (01:44)
--- NOTE | 2020-07-10 01:44 | NUR ---
Back from CT, more responsive now, using urinal.
--- NOTE | 2020-07-10 02:35 | NUR ---
HOSPITALIST AT BEDSIDE
[2020-07-10 02:49] VITALS: BP 95/63
[2020-07-10] MEDS ORDERED: ENALAPRILAT 1.25 MG/ML, 2ML IVPush PRN (03:00)
[2020-07-10] MEDS ORDERED: PROMETHAZINE 25 MG/ML, 1ML IM PRN (03:00)
[2020-07-10] MEDS ORDERED: POTASSIUM CHLORIDE 20 MEQ TAB.ER.PRT PO ONE (03:00)
[2020-07-10] MEDS: ENOXAPARIN 40 MG/0.4 ML SQ SCH (04:05)
[2020-07-10] MEDS: CEFTRIAXONE PMX 1GM/50ML 50 ML IV SCH (04:06)
[2020-07-10] MEDS ORDERED: OLAN5TAB3 PO (04:26)
[2020-07-10] MEDS ORDERED: FLU VACCINE PER PHARMACY IM ONE (04:30)
[2020-07-10 04:50] LABS: C-REACTIVE PROTEIN, QUANT 1.5 mg/dL (0.02-0.49)
[2020-07-10] MEDS: AZITHROMYCIN 500 MG in SODIUM CHLORIDE 0.9% 250 ML IV SCH (04:57)
[2020-07-10] MEDS: POTASSIUM CHLORIDE 20 MEQ, MAGNESIUM SULFATE 2 GM, THIAMINE 200 MG, FOLIC ACID 1 MG in ... IV SCH (06:00)
[2020-07-10 06:34] VITALS: BP 110/64
[2020-07-10 07:02] LABS: AMPHETAMINE SCREEN, URINE Negative (Negative); BARBITURATE SCREEN, URINE Negative (Negative); BENZODIAZEPINE SCREEN, URINE Negative (Negative); CANNABINOID SCREEN, URINE Negative (Negative); COCAINE SCREEN, URINE Negative (Negative); METHADONE SCREEN, URINE Negative (Negative); OPIATE SCREEN, URINE Negative (Negative)
[2020-07-10] MEDS: ASCORBIC ACID 500 MG TABLET PO SCH ×2 (08:05→17:31)
[2020-07-10] MEDS: ZINC SULFATE 220 MG CAPSULE PO SCH (08:06)
[2020-07-10] MEDS: DEXAMETHASONE 4 MG/ML, 1ML IVPush SCH (08:06)
[2020-07-10] MEDS: CHOLECALCIFEROL 5,000u TAB PO SCH (08:06)
[2020-07-10] MEDS: THIAMINE 100MG TABLET PO SCH (08:06)
[2020-07-10] MEDS ORDERED: LORazepam 2 MG/ML, 1ML IV PRN ×2 (12:00)
[2020-07-10 12:03] VITALS: BP 148/78
[2020-07-10] MEDS: LORazepam 2 MG/ML, 1ML IV PRN ×3 (12:39→19:34)
[2020-07-10 12:47] LABS: CLOSTRIDIUM DIFFICILE ANTIGEN POSITIVE; CLOSTRIDIUM DIFFICILE TOXIN NEGATIVE (Negative)
[2020-07-10] MEDS: ACETAMINOPHEN 325 MG TABLET PO PRN (17:31)
[2020-07-10 18:20] VITALS: BP 128/82
[2020-07-10] MEDS: MELATONIN 5 MG TABLET PO SCH (19:34)
[2020-07-11 00:48] VITALS: BP 137/66
[2020-07-11] MEDS: ENOXAPARIN 40 MG/0.4 ML SQ SCH (03:22)
[2020-07-11] MEDS: CEFTRIAXONE PMX 1GM/50ML 50 ML IV SCH (03:22)
[2020-07-11] MEDS: LORazepam 2 MG/ML, 1ML IV PRN ×5 (04:05→22:19)
[2020-07-11] MEDS: AZITHROMYCIN 500 MG in SODIUM CHLORIDE 0.9% 250 ML IV SCH (04:05)
[2020-07-11] MEDS: POTASSIUM CHLORIDE 20 MEQ, MAGNESIUM SULFATE 2 GM, THIAMINE 200 MG, FOLIC ACID 1 MG in ... IV SCH (06:14)
[2020-07-11 06:18] VITALS: BP 127/69
[2020-07-11 06:39] LABS: BASOPHILS % (AUTO) 0 % (0-1); EOSINOPHILS % (AUTO) 0 % (1-7); LYMPHOCYTES % (AUTO) 9 % (22-44); MEAN CORPUSCULAR HEMOGLOBIN 30.8 pg (27.5-34.5); MONOCYTES % (AUTO) 11 % (2-9); NEUTROPHILS % (AUTO) 80 % (42-75); PLATELET COUNT 293 x10^3/uL (130-400); RED BLOOD COUNT 4.96 x10^6/uL (4.38-5.82)
[2020-07-11 06:49] LABS: CHLORIDE 109 mmol/L (98-107)
[2020-07-11 06:51] LABS: ANION GAP 6 mmol/L (5-15); CALCIUM 9.2 mg/dL (8.5-10.1); CREATININE 0.72 mg/dL (0.7-1.3)
[2020-07-11 06:52] LABS: MD NO
[2020-07-11] MEDS: DEXAMETHASONE 4 MG/ML, 1ML IVPush SCH (07:53)
[2020-07-11] MEDS: MULTIVITAMINS/MINERALS TABLET PO SCH (07:53)
[2020-07-11] MEDS: CHOLECALCIFEROL 5,000u TAB PO SCH (07:53)
[2020-07-11] MEDS: THIAMINE 100MG TABLET PO SCH (07:53)
[2020-07-11] MEDS: ZINC SULFATE 220 MG CAPSULE PO SCH (07:53)
[2020-07-11] MEDS: ASCORBIC ACID 500 MG TABLET PO SCH ×2 (07:54→16:33)
[2020-07-11 08:00] VITALS: BP 121/79
[2020-07-11] MEDS: HYDROCORTISONE 100 MG INJ. IVPush SCH ×2 (09:30→16:32)
[2020-07-11] MEDS ORDERED: ALBUTEROL/IPRATROPIUM 2.5MG/0.5MG, 3 ML HHN SCH (09:30)
[2020-07-11] MEDS: ALBUTEROL-IPRATROPIUM MDI INH INH SCH ×3 (11:18→23:00)
[2020-07-11 12:21] VITALS: BP 117/71
[2020-07-11] MEDS ORDERED: CALCIUM CARBONATE 500 MG TAB.CHEW PO PRN (16:00)
[2020-07-11] MEDS: CALCIUM CARBONATE 500 MG TAB.CHEW PO PRN ×2 (16:04→22:19)
[2020-07-11] MEDS: FAMOTIDINE 20 MG TABLET PO SCH (19:27)
[2020-07-11] MEDS: MELATONIN 5 MG TABLET PO SCH (19:27)
[2020-07-11 19:33] VITALS: BP 132/67
[2020-07-11] MEDS: ACETAMINOPHEN 325 MG TABLET PO PRN (22:19)
[2020-07-12 00:33] VITALS: BP 145/73
[2020-07-12] MEDS: HYDROCORTISONE 100 MG INJ. IVPush SCH ×3 (00:41→17:19)
[2020-07-12] MEDS: ENOXAPARIN 40 MG/0.4 ML SQ SCH (04:00)
[2020-07-12] MEDS: CEFTRIAXONE PMX 1GM/50ML 50 ML IV SCH (04:05)
[2020-07-12] MEDS: ALBUTEROL-IPRATROPIUM MDI INH INH SCH ×4 (04:49→22:53)
[2020-07-12] MEDS: AZITHROMYCIN 500 MG in SODIUM CHLORIDE 0.9% 250 ML IV SCH (04:49)
[2020-07-12 06:36] VITALS: BP 142/67
[2020-07-12] MEDS: ASCORBIC ACID 500 MG TABLET PO SCH ×2 (08:39→17:19)
[2020-07-12] MEDS: MULTIVITAMINS/MINERALS TABLET PO SCH (08:39)
[2020-07-12] MEDS: THIAMINE 100MG TABLET PO SCH (08:40)
[2020-07-12] MEDS: ZINC SULFATE 220 MG CAPSULE PO SCH (08:40)
[2020-07-12] MEDS: CHOLECALCIFEROL 5,000u TAB PO SCH (08:40)
[2020-07-12] MEDS: POTASSIUM CHLORIDE 20 MEQ, MAGNESIUM SULFATE 2 GM, THIAMINE 200 MG, FOLIC ACID 1 MG in ... IV SCH (10:22)
[2020-07-12 12:01] VITALS: BP 110/62
[2020-07-12] MEDS: ACETAMINOPHEN 325 MG TABLET PO PRN ×2 (12:45→22:53)
[2020-07-12] MEDS: CALCIUM CARBONATE 500 MG TAB.CHEW PO PRN ×2 (12:45→22:54)
[2020-07-12 18:32] VITALS: BP 126/70
[2020-07-12] MEDS: MELATONIN 5 MG TABLET PO SCH (20:22)
[2020-07-12] MEDS: FAMOTIDINE 20 MG TABLET PO SCH (20:22)
[2020-07-12] MEDS: LORazepam 2 MG/ML, 1ML IV PRN (20:22)
[2020-07-13 00:27] VITALS: BP 134/73
[2020-07-13] MEDS: CEFTRIAXONE PMX 1GM/50ML 50 ML IV SCH (03:55)
[2020-07-13] MEDS: ENOXAPARIN 40 MG/0.4 ML SQ SCH (04:47)
[2020-07-13] MEDS: AZITHROMYCIN 500 MG in SODIUM CHLORIDE 0.9% 250 ML IV SCH (04:47)
[2020-07-13] MEDS: ALBUTEROL-IPRATROPIUM MDI INH INH SCH ×4 (04:48→22:38)
[2020-07-13 05:20] LABS: BASOPHILS % (AUTO) 1 % (0-1); EOSINOPHILS % (AUTO) 0 % (1-7); LYMPHOCYTES % (AUTO) 20 % (22-44); MEAN CORPUSCULAR HEMOGLOBIN 30.8 pg (27.5-34.5); MEAN CORPUSCULAR HGB CONC 33.3 g/dL (33.2-36.2); MEAN PLATELET VOLUME 9.1 fL (7.4-10.4); MONOCYTES % (AUTO) 7 % (2-9); NEUTROPHILS % (AUTO) 72 % (42-75); PLATELET COUNT 254 x10^3/uL (130-400); RED BLOOD COUNT 4.35 x10^6/uL (4.38-5.82); RED CELL DISTRIBUTION WIDTH 13.8 % (9.4-14.8)
[2020-07-13 05:32] LABS: MD NO
[2020-07-13 05:42] LABS: CALCIUM 8.7 mg/dL (8.5-10.1); CHLORIDE 115 mmol/L (98-107)
[2020-07-13 05:45] LABS: ANION GAP 6 mmol/L (5-15); CREATININE 0.73 mg/dL (0.7-1.3)
[2020-07-13 06:34] VITALS: BP 131/79
[2020-07-13] MEDS: CHOLECALCIFEROL 5,000u TAB PO SCH (07:18)
[2020-07-13] MEDS: ZINC SULFATE 220 MG CAPSULE PO SCH (07:18)
[2020-07-13] MEDS: MULTIVITAMINS/MINERALS TABLET PO SCH (07:18)
[2020-07-13] MEDS: THIAMINE 100MG TABLET PO SCH (07:18)
[2020-07-13] MEDS: ASCORBIC ACID 500 MG TABLET PO SCH ×2 (07:18→17:12)
[2020-07-13] MEDS: POTASSIUM CHLORIDE 20 MEQ, MAGNESIUM SULFATE 2 GM, THIAMINE 200 MG, FOLIC ACID 1 MG in ... IV SCH (07:19)
[2020-07-13] MEDS: HYDROCORTISONE 100 MG INJ. IVPush SCH ×3 (10:33→17:12)
[2020-07-13 12:07] VITALS: BP 119/70
[2020-07-13] MEDS: ACETAMINOPHEN 325 MG TABLET PO PRN (13:41)
[2020-07-13 18:33] VITALS: BP 130/84
[2020-07-13] MEDS: MELATONIN 5 MG TABLET PO SCH (19:23)
[2020-07-13] MEDS: FAMOTIDINE 20 MG TABLET PO SCH (19:23)
[2020-07-14 00:08] VITALS: BP 125/75
[2020-07-14] MEDS: HYDROCORTISONE 100 MG INJ. IVPush SCH (01:07)
[2020-07-14] MEDS: CEFTRIAXONE PMX 1GM/50ML 50 ML IV SCH (04:04)
[2020-07-14] MEDS: AZITHROMYCIN 500 MG in SODIUM CHLORIDE 0.9% 250 ML IV SCH (05:44)
[2020-07-14] MEDS: ENOXAPARIN 40 MG/0.4 ML SQ SCH (05:46)
[2020-07-14 06:06] LABS: BASOPHILS % (AUTO) 1 % (0-1); EOSINOPHILS % (AUTO) 1 % (1-7); LYMPHOCYTES % (AUTO) 12 % (22-44); MEAN CORPUSCULAR HEMOGLOBIN 30.7 pg (27.5-34.5); MEAN CORPUSCULAR HGB CONC 33.6 g/dL (33.2-36.2); MEAN PLATELET VOLUME 9.3 fL (7.4-10.4); MONOCYTES % (AUTO) 6 % (2-9); NEUTROPHILS % (AUTO) 81 % (42-75); PLATELET COUNT 275 x10^3/uL (130-400); RED BLOOD COUNT 4.67 x10^6/uL (4.38-5.82); RED CELL DISTRIBUTION WIDTH 13.6 % (9.4-14.8)
[2020-07-14 06:09] LABS: MD NO
[2020-07-14 06:33] VITALS: BP 122/73
[2020-07-14 08:44] LABS: ANION GAP 4 mmol/L (5-15); CALCIUM 8.7 mg/dL (8.5-10.1); CHLORIDE 109 mmol/L (98-107)
[2020-07-14 08:45] LABS: CREATININE 0.61 mg/dL (0.7-1.3)
[2020-07-14] MEDS ORDERED: VANC125C3 PO (10:54)
[2020-07-14] MEDS ORDERED: CEFD300C37 PO (10:54)
[2020-07-14] MEDS: MULTIVITAMINS/MINERALS TABLET PO SCH (10:54)
[2020-07-14] MEDS: ALBUTEROL-IPRATROPIUM MDI INH INH SCH ×2 (10:55→14:00)
[2020-07-14] MEDS ORDERED: VANCOMYCIN 50 MG/ML ORAL SUSP PO SCH (11:00)
[2020-07-14 12:33] VITALS: BP 115/68
[2020-07-14] MEDS: POTASSIUM CHLORIDE 20 MEQ, MAGNESIUM SULFATE 2 GM, THIAMINE 200 MG, FOLIC ACID 1 MG in ... IV SCH (13:00)
[2020-07-14] MEDS ORDERED: CEFDINIR 300 MG CAPSULE PO SCH (21:00)
== END 2020-07-14 15:17 | disposition home or self-care (01) | DRG 193 ==
LOC: ED 23:11 → EDIP 07-10 01:35 → 3N 07-10 02:47
PROVIDERS: ADMIT Family Medicine; ATTEND Family Medicine
DX: J18.9 Pneumonia, unspecified organism (principal); J96.01 Acute respiratory failure with hypoxia; J98.11 Atelectasis; F10.229 Alcohol dependence with intoxication, unspecified; E87.6 Hypokalemia; F17.200 Nicotine dependence, unspecified, uncomplicated; F20.9 Schizophrenia, unspecified; G40.909 Epilepsy, unspecified, not intractable, without status epilepticus; G89.11 Acute pain due to trauma; J43.9 Emphysema, unspecified; Z59.0 Homelessness; Z20.822 Contact with and (suspected) exposure to COVID-19
CPT/HCPCS: 36415; 71045; 71046; 71275; 80048; 80053; 80307; 80320; 83615; 83735; 84484; 85025; 85379; 86140; 87324; 87493; 93005; 94640; 96372; 99285; G0378; J0456; J0696; J1100; J1650; J3370; J3411; J3475; J3480; J7042; J7613; Q9967; G0480; J1720; J2060; J2310; J7050; U0003

== ENCOUNTER 2020-07-21 10:12 | Emergency (ER) | payer MEDICARE, MEDICAID ==
[~2020-07-21] VITALS: Ht 172.7 cm; Wt 73.0 kg
[~2020-07-21 10:12] MED LIST changes: +CEFD300C37 PO; +VANC125C3 PO
--- NOTE | 2020-07-21 10:12 | NUR ---
REMY FROM 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
--- NOTE | 2020-07-21 10:12 | NUR ---
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
--- NOTE | 2020-07-21 11:02 | NUR ---
PT CALMLY LAYING ON GURNEY SLEEPING, ASPIRATION PREC IN PLACE, NAD WITH EQUAL CHEST RISE/FALL, NO NEEDS AT THIS TIME, CALL LIGHT WITHIN REACH.
--- NOTE | 2020-07-21 13:48 | NUR ---
REPORT GIVEN TO JENNA FOSS
[2020-07-21 13:50] VITALS: BP 121/67
--- NOTE | 2020-07-21 14:46 | NUR ---
PT UNABLE TO STAND AND WALK AT THIS TIME.
--- NOTE | 2020-07-21 14:58 | NUR ---
REPORT GIVEN TO PIPO TAFOYA.
--- NOTE | 2020-07-21 16:40 | NUR ---
PT UP NOW WITH STEADY GAIT, GETTING DRESSED. ERMD UPDATED
== END 2020-07-21 17:08 | disposition home or self-care (01) ==
LOC: ED 10:24
DX: F10.129 Alcohol abuse with intoxication, unspecified (principal); J34.89 Other specified disorders of nose and nasal sinuses; Y90.0 Blood alcohol level of less than 20 mg/100 ml
CPT/HCPCS: 99283

== ENCOUNTER 2020-07-22 17:45 | Emergency (ER) | payer MEDICARE, MEDICAID ==
[~2020-07-22] VITALS: Ht 170.2 cm; Wt 73.0 kg
--- NOTE | 2020-07-22 18:04 | NUR ---
PATIENT BIB [facility] WITH CHIEF C/O WEAKNESS. PER EMS PATIENT WAS FOUND BY [facility] ON THE CORNER OF [facility] AND [place] SITTING AGAINST THE WALL. PATIENT STATING HE CANNOT WALK WHEN EMS ARRIVED. EMS STATES PATIENT NEEDED ASSISTANCE GETTING UP BUT WAS ABLE TO WALK TO AMBULANCE A COUPLE FEET AWAY. PER EMS PATIENT DENIES PAIN, VITALS STABLE EN ROUTE NO OTHER COMPLAINTS. PATIENT WAS HERE 2 DAYS AGO, ADMITS TO DRINKING 2.5 PINTS OF VODKA TODAY, DENIES DRUG USE. NADN, VSS, WARM BLANKET PROVIDED, SIDE RAILS UP X2, CALL LIGHT WITHIN REACH.
--- NOTE | 2020-07-22 18:20 | NUR ---
ERMD AT BEDSIDE FOR EVALUATION.
--- NOTE | 2020-07-22 19:27 | NUR ---
PATIENT LAYING IN GURNEY WITH EYES CLOSED, RESP EVEN AND UNLABORED, NADN, VSS, CALL LIGHT WITHIN REACH.
--- NOTE | 2020-07-22 20:15 | NUR ---
SANDWICH AND WATER PROVIDED TO PATIENT.
--- NOTE | 2020-07-22 20:59 | NUR ---
PATIENT LAYING IN GURNEY WITH EYES CLOSED, OPENS EYES TO NAME BRIEFLY AND THEN GOES BACK TO SLEEP. GREGORY JARAMILLOS, CALL LIGHT WITHIN REACH.
--- NOTE | 2020-07-22 21:37 | NUR ---
Margot gavin in [facility] - 07/22/20 at 2140 by [email or web address] REPORT GIVEN TO PIPO DAN FOR TRANSFER OF PATIENT CARE.
--- NOTE | 2020-07-22 21:59 | NUR ---
PATIENT LAYING IN GURNEY, AROUSABLE TO NAME, BUT UNABLE TO STAY AWAKE FOR MORE THAN 30 SECONDS, NADN, VSS, SIDE RAILS UP X2, CALL LIGHT WITHIN REACH.
--- NOTE | 2020-07-22 22:38 | NUR ---
BEDSIDE REPORT RECEIVED FROM DIANA FOSS.
--- NOTE | 2020-07-22 22:39 | NUR ---
REPORT GIVEN TO PIPO GOFF FOR TRANSFER OF PATIENT CARE.
--- NOTE | 2020-07-22 23:05 | NUR ---
UPON ENTRY INTO ROOM PT O2 NOTED TO BE 88% ON ROOM AIR. PATIENT LAYING SUPINE ON GURNEY, AROUSABLE TO NAME, BUT UNABLE TO STAY AWAKE FOR MORE THAN 30 SECONDS, NADN, VSS, SIDE RAILS UP X2, CALL LIGHT WITHIN REACH. PT UNABLE TO WAKE AND AMBULATE AT THIS TIME.
--- NOTE | 2020-07-23 00:02 | NUR ---
PT SUPINE ON GURNEY SLEEPING. PT WAKES AND ANSWERS SOME QUESTIONS AND IMMEDIATELY RETURNS BACK TO SLEEP. PT UNABLE TO SAFELY AMBULATE AT THIS TIME. CALL LIGHT AND PERSONAL BELONGINGS WITHIN REACH
[2020-07-23 01:26] VITALS: BP 119/72
--- NOTE | 2020-07-23 01:26 | NUR ---
Patient given discharge instructions and they have confirmed that they understand the instructions. Patient ambulatory with steady gait. Pt given taxi voucher upon d/c.
== END 2020-07-23 01:29 | disposition home or self-care (01) ==
LOC: ED 19:45
DX: F10.120 Alcohol abuse with intoxication, uncomplicated (principal); Y90.1 Blood alcohol level of 20-39 mg/100 ml
CPT/HCPCS: 99285

== ENCOUNTER 2020-07-31 19:42 | Emergency (ER) | payer MEDICARE, MEDICAID ==
[~2020-07-31] VITALS: Ht 167.6 cm; Wt 75.0 kg
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
--- NOTE | 2020-07-31 21:34 | NUR ---
pt currently sleeping, on o2 sat monitor. no distress, good aeration and good oxygenation.
--- NOTE | 2020-07-31 22:34 | NUR ---
no changes. pt sleeping, on o2 sat probe. no new orders.
[2020-07-31 23:20] VITALS: BP 105/70
--- NOTE | 2020-07-31 23:20 | NUR ---
no changes. pt remains asleep, did wake up to urinate in bedside urinal. o2 nc placed for pt when his o2 sats hit 89% while sleeping.
== END 2020-08-01 | disposition home or self-care (01) ==
LOC: ED 21:32
DX: F10.120 Alcohol abuse with intoxication, uncomplicated (principal); Y90.0 Blood alcohol level of less than 20 mg/100 ml
CPT/HCPCS: 99283

== ENCOUNTER 2020-08-01 04:23 | Emergency (ER) | payer MEDICARE, MEDICAID ==
[~2020-08-01] VITALS: Ht 177.8 cm; Wt 76.0 kg
[2020-08-01 04:26] VITALS: BP 117/75
== END 2020-08-01 06:31 | disposition home or self-care (01) ==
LOC: ED 06:03
DX: M25.512 Pain in left shoulder (principal); F10.220 Alcohol dependence with intoxication, uncomplicated; J43.9 Emphysema, unspecified; Y90.0 Blood alcohol level of less than 20 mg/100 ml
CPT/HCPCS: 99283

== ENCOUNTER 2020-08-01 13:22 | Emergency (ER) | payer MEDICARE, MEDICAID ==
[~2020-08-01] VITALS: Ht 167.6 cm; Wt 75.0 kg
--- NOTE | 2020-08-01 13:37 | NUR ---
PATIENT ARRIVES FROM [facility] WHERE HE WAS DRINKING HEAVILY, HAS BEEN SEEN HERE 3X IN LAST FEW DAYS. SMELLS OF ETOH. SLURRING. NOT ANSWERING QUESTIONS.
--- NOTE | 2020-08-01 13:44 | NUR ---
PATIENT SLEEPING 89-92%, PLACED ON TWO LITERS
--- NOTE | 2020-08-01 15:17 | NUR ---
tried to wake patient to eat lunch but he is very sound asleep, wakes momentarily and slurs something unrelated then back to sleep. on monitor, rails up
--- NOTE | 2020-08-01 16:12 | NUR ---
sleeping. arousable and then quickly back to sleep
--- NOTE | 2020-08-01 17:21 | NUR ---
PATIENT UP TO BATHROOM AND EATING. LET MD KNOW, GOOD ON FEET
[2020-08-01 17:30] VITALS: BP 132/78
--- NOTE | 2020-08-01 17:43 | NUR ---
patient reluctant to leave, security helped
== END 2020-08-01 17:45 | disposition home or self-care (01) ==
LOC: ED 14:08
DX: F10.220 Alcohol dependence with intoxication, uncomplicated (principal); M25.512 Pain in left shoulder; J43.9 Emphysema, unspecified; G40.909 Epilepsy, unspecified, not intractable, without status epilepticus; Y90.0 Blood alcohol level of less than 20 mg/100 ml
CPT/HCPCS: 99283

== ENCOUNTER 2020-08-02 10:36 | Emergency (ER) | payer MEDICARE, MEDICAID ==
[~2020-08-02] VITALS: Ht 170.2 cm; Wt 75.0 kg
--- NOTE | 2020-08-02 12:14 | NUR ---
PT SLEEPING IN GURNEY. AROUSES TO VERBAL STIMULI. ON 2L VIA NC. VSS
--- NOTE | 2020-08-02 13:12 | NUR ---
ATTEMPT TO AMBULATE. UNSTEADY GAIT.
[2020-08-02 14:27] VITALS: BP 112/71
--- NOTE | 2020-08-02 15:35 | NUR ---
PT REFUSING VS AT THIS TIME ATTEMPT TO AMBULATE. PT UNSTEADY STANDING AT BEDSIDE. PT AGITATED EASILY STATING "IF I EVER HEAR YOU TALK AGAIN IT WILL BE TOO SOON"
--- NOTE | 2020-08-02 17:21 | NUR ---
PT AMBULATED IN HALLWAY WITH STEADY GAIT. A&O, NAD. DC HOME WITH BUS PASS
== END 2020-08-02 17:23 | disposition home or self-care (01) ==
LOC: ED 11:50
DX: F10.129 Alcohol abuse with intoxication, unspecified (principal); Y90.0 Blood alcohol level of less than 20 mg/100 ml; G40.909 Epilepsy, unspecified, not intractable, without status epilepticus
CPT/HCPCS: 99283

== ENCOUNTER 2020-08-02 19:45 | Emergency (ER) | payer MEDICARE, MEDICAID ==
[~2020-08-02] VITALS: Ht 167.6 cm; Wt 75.0 kg
[2020-08-02 19:48] VITALS: BP 110/78
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
--- NOTE | 2020-08-02 21:02 | NUR ---
PT AMBULATED BY SELF TO DISCHARGE DESK.
== END 2020-08-02 21:03 | disposition home or self-care (01) ==
LOC: ED 20:04
DX: F10.220 Alcohol dependence with intoxication, uncomplicated (principal); Z72.9 Problem related to lifestyle, unspecified; F17.210 Nicotine dependence, cigarettes, uncomplicated; J43.9 Emphysema, unspecified; I10 Essential (primary) hypertension; G40.909 Epilepsy, unspecified, not intractable, without status epilepticus; F17.200 Nicotine dependence, unspecified, uncomplicated; Y90.0 Blood alcohol level of less than 20 mg/100 ml
CPT/HCPCS: 99283; 99406

== ENCOUNTER 2020-08-03 18:30 | Emergency (ER) | payer MEDICARE, MEDICAID ==
[~2020-08-03] VITALS: Ht 170.2 cm; Wt 70.0 kg
[2020-08-03 18:34] VITALS: BP 103/77
== END 2020-08-03 20:10 | disposition home or self-care (01) ==
LOC: ED 19:22
DX: F10.220 Alcohol dependence with intoxication, uncomplicated (principal); Z20.822 Contact with and (suspected) exposure to COVID-19; Y90.0 Blood alcohol level of less than 20 mg/100 ml
CPT/HCPCS: 87635; 99283

== ENCOUNTER 2020-08-04 17:16 | Emergency (ER) | payer MEDICARE, MEDICAID ==
[~2020-08-04] VITALS: Ht 172.7 cm; Wt 75.0 kg
--- NOTE | 2020-08-04 17:24 | NUR ---
PT BIB EMS FOR ETOH. PT RESTING IN [facility]. SIDE RAILS UP. PLACED ON 2 LITERS 02 VIA UT.
--- NOTE | 2020-08-04 17:40 | NUR ---
REPORT FROM SO FOSS. PT REPOSITIONED IN BED. PT GIVEN HIS SANDWICH FROM HIS BACKPACK PER REQUEST. PT ON MONITORS, VSS. CONT TO MONITOR.
--- NOTE | 2020-08-04 18:40 | NUR ---
PT SLEEPING IN BED, NO DISTRESS. PT REMAINS ON MONITORS, VSS. CONT TO MONITOR.
--- NOTE | 2020-08-04 18:51 | NUR ---
REPORT LEROY FOSS.
--- NOTE | 2020-08-04 18:58 | NUR ---
REPORT RECIEVED FROM PIPO BABCOCK. PT SLEEPING IN [facility], RESP EVEN/UNLABORED, ON CONTINUOUS PULSE OX AND BP MACHINE
--- NOTE | 2020-08-04 21:46 | NUR ---
PT STILL SLEEPING IN [facility], AND AWAKENS FOR A MOMENT AT A TIME TO ANSWER QUESTIONS THEN FALLS ASLEEP AGIAN. UNABLE TO AMBULATE AT THIS TIME. WILL RECHECK.
[2020-08-04 22:45] VITALS: BP 102/66
== END 2020-08-04 23:25 | disposition home or self-care (01) ==
LOC: ED 18:26
DX: F10.229 Alcohol dependence with intoxication, unspecified (principal); F17.210 Nicotine dependence, cigarettes, uncomplicated; Z72.9 Problem related to lifestyle, unspecified; Y90.0 Blood alcohol level of less than 20 mg/100 ml; I10 Essential (primary) hypertension; G40.909 Epilepsy, unspecified, not intractable, without status epilepticus
CPT/HCPCS: 99285; 99406

== ENCOUNTER 2020-08-06 14:05 | Emergency (ER) | payer MEDICARE, MEDICAID ==
[~2020-08-06] VITALS: Ht 175.3 cm; Wt 80.0 kg
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
--- NOTE | 2020-08-06 14:25 | NUR ---
PT PLACED ON CONT PULSE OX FOR MONITORING.
--- NOTE | 2020-08-06 14:37 | NUR ---
bedrails up x4. pt given warm blanket. pt sleeping.
--- NOTE | 2020-08-06 14:54 | NUR ---
REPORT RECIEVED FROM ANDRE FOSS. PT SLEEPING, REPS EVEN AND UNLABORED.
--- NOTE | 2020-08-06 16:45 | NUR ---
PT PLACED ON 2 L NC FOR RA SAT OF 87% WHILE SLEEPING.
[2020-08-06 18:33] VITALS: BP 108/57
== END 2020-08-06 18:34 | disposition home or self-care (01) ==
LOC: ED 15:03
DX: F10.229 Alcohol dependence with intoxication, unspecified (principal); Y90.0 Blood alcohol level of less than 20 mg/100 ml
CPT/HCPCS: 99283

== ENCOUNTER 2020-08-06 21:26 | Emergency (ER) | payer MEDICARE, MEDICAID ==
[~2020-08-06] VITALS: Ht 172.7 cm; Wt 71.0 kg
[2020-08-06 21:29] VITALS: BP 126/72
--- NOTE | 2020-08-06 22:31 | NUR ---
received report, pt asleep in room 21, on cr monitor and 1L nc 02. no acute distress.
== END 2020-08-07 01:22 | disposition home or self-care (01) ==
LOC: ED 21:40
DX: F10.120 Alcohol abuse with intoxication, uncomplicated (principal); I10 Essential (primary) hypertension; F17.210 Nicotine dependence, cigarettes, uncomplicated; Y90.0 Blood alcohol level of less than 20 mg/100 ml
CPT/HCPCS: 99283; 99406

== ENCOUNTER 2020-08-07 14:15 | Emergency (ER) | payer MEDICARE, MEDICAID ==
[~2020-08-07] VITALS: Ht 170.2 cm; Wt 75.0 kg
--- NOTE | 2020-08-07 14:27 | NUR ---
pt is a 50/m bib ems with acute alcohol intoxication. He was very unsteady on his walk from the ambulance gurney to the bed. His words are slurred and difficult to understand. It is unclear how much he drank today or how much he drinks on a regular basis. he also admits to smoking meth today. continuous sp02, cycling vitals, and call light within reach. both bed rails up and warm blanket provided.
--- NOTE | 2020-08-07 14:38 | NUR ---
pt room air sat dropped to 88%, placed on 2l o2 via nc and is now at 95%
--- NOTE | 2020-08-07 16:02 | NUR ---
pt sleeping in gurney, respirations even and unlabored. call light within reach. no further needs at this time.
[2020-08-07 16:55] VITALS: BP 107/65
--- NOTE | 2020-08-07 16:56 | NUR ---
PT RESTING COMFORTABLY, WARM BLANKETS AND URINAL PROVIDED. VITALS UPDATED AND CALL LIGHT WITHIN REACH. CRACKERS AND SODA PROVIDED. NO FURTHER NEEDS AT THIS TIME
--- NOTE | 2020-08-07 18:45 | NUR ---
PT REFUSED TO STAY IN ROOM ON [facility]. AMBULATED WITH A WOBBLY GATE, STATED " I WANT TO LEAVE NOW, GET ME OUT OF HERE". D/C INFORMATION GIVEN AND PT ESCORTED OUT.
== END 2020-08-07 18:54 | disposition home or self-care (01) ==
LOC: ED 15:29
DX: F17.210 Nicotine dependence, cigarettes, uncomplicated (principal); I10 Essential (primary) hypertension; Z72.9 Problem related to lifestyle, unspecified; F10.220 Alcohol dependence with intoxication, uncomplicated; Y90.0 Blood alcohol level of less than 20 mg/100 ml
CPT/HCPCS: 82962; 99283; 99406

== ENCOUNTER 2020-08-08 13:04 | Emergency (ER) | payer MEDICARE, MEDICAID ==
[~2020-08-08] VITALS: Ht 170.2 cm; Wt 73.0 kg
[~2020-08-08 13:04] MED LIST changes: -FOLI-17 PO; +FOLI1TAB32 PO
[2020-08-08 13:13] VITALS: BP 116/71
--- NOTE | 2020-08-08 13:16 | NUR ---
BIB [facility], PT C/O ABD PAIN AND DIARRHEA. +ETOH PT CONNECTED TO MONITORING. PT TALKING ABOUT RANDOM SUBJECTS, NON STOP. PT COMPLIANT WITH CARE. AWAITING ORDERS.
== END 2020-08-08 13:54 | disposition home or self-care (01) ==
LOC: ED 13:17
DX: M25.512 Pain in left shoulder (principal); G89.29 Other chronic pain; F10.220 Alcohol dependence with intoxication, uncomplicated; J43.9 Emphysema, unspecified; G40.909 Epilepsy, unspecified, not intractable, without status epilepticus; Y90.0 Blood alcohol level of less than 20 mg/100 ml
CPT/HCPCS: 99283

== ENCOUNTER 2020-08-21 13:32 | Emergency (ER) | payer MEDICARE, MEDICAID ==
[~2020-08-21] VITALS: Ht 182.9 cm; Wt 90.0 kg
[2020-08-21 13:43] VITALS: BP 116/59
--- NOTE | 2020-08-21 13:45 | NUR ---
PT CONNECTE TO PULSE OX.
--- NOTE | 2020-08-21 14:09 | NUR ---
PT TO BE MTF.
--- NOTE | 2020-08-21 15:15 | NUR ---
PT SLEEPING ON GURNEY. RESP EVEN AND UNLABORED.
--- NOTE | 2020-08-21 16:53 | NUR ---
PT SLEEPING ON GURNEY. RESP EVEN AND UNLABORED.
--- NOTE | 2020-08-21 17:22 | NUR ---
BREAK RN: PT RESTING IN ROOM. NO ACUTE DISTRESS NOTED. CALL LIGHT IN PLACE. WILL CONTINUE TO MONITOR WHILE PRIMARY RN IS ON BREAK.
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
== END 2020-08-21 19:03 | disposition home or self-care (01) ==
LOC: ED 14:05
DX: F10.229 Alcohol dependence with intoxication, unspecified (principal); I10 Essential (primary) hypertension; G40.909 Epilepsy, unspecified, not intractable, without status epilepticus; Y90.0 Blood alcohol level of less than 20 mg/100 ml
CPT/HCPCS: 99283

== ENCOUNTER 2020-08-22 13:41 | Emergency (ER) | payer MEDICARE, MEDICAID ==
[~2020-08-22] VITALS: Ht 185.4 cm; Wt 79.0 kg
--- NOTE | 2020-08-22 13:45 | NUR ---
Pt moved to [facility] by EMS staff, report received.
--- NOTE | 2020-08-22 14:10 | NUR ---
Pt changed into gown, placed on bedside monitor for BP and SpO2 at this time, bed placed to lowest position with side rails up x2, call light in reach, and lights dimmed. Pt states pain in bilat shoulders is from multiple falls while intoxicated over the last few weeks. Pt falls back to sleep quickly without verbal stimulus present.
--- NOTE | 2020-08-22 14:38 | NUR ---
Noted decreased SpO2 on RA while asleep, curled up on bed on right side. Placed on NC at 3L/min with good effect noted. Pt had ripped off BP cuff. Cuff placed back onto R upper arm and recycled with noted low reading. Will reassess in 15 minutes and repositioning of pt.
--- NOTE | 2020-08-22 14:51 | NUR ---
Report given to PIPO Agee and care transferred.
--- NOTE | 2020-08-22 14:52 | NUR ---
report recieved from betito grant
--- NOTE | 2020-08-22 16:04 | NUR ---
PT SLEEPING IN GURNEY, RESP EVEN AND UNLABORED.
[2020-08-22 18:09] VITALS: BP 100/54
== END 2020-08-22 18:11 | disposition home or self-care (01) ==
LOC: ED 14:13
DX: F10.121 Alcohol abuse with intoxication delirium (principal); M25.512 Pain in left shoulder; I10 Essential (primary) hypertension; F17.210 Nicotine dependence, cigarettes, uncomplicated; Y90.0 Blood alcohol level of less than 20 mg/100 ml
CPT/HCPCS: 99283; 99406

== ENCOUNTER 2020-08-24 15:23 | Emergency (ER) | payer MEDICARE, MEDICAID ==
[~2020-08-24] VITALS: Ht 170.2 cm; Wt 70.0 kg
[2020-08-24 15:25] VITALS: BP 130/73
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
--- NOTE | 2020-08-24 16:30 | NUR ---
Pt sleeping, breathing equal, non-labored, visible from nurses station.
--- NOTE | 2020-08-24 17:30 | NUR ---
Pt getting dressed, reports he is ready to go. Using phone in hallway to call for a ride. Informing provider.
--- NOTE | 2020-08-24 17:50 | NUR ---
Pt ambulated to bathroom, steady equal gait.
--- NOTE | 2020-08-24 18:09 | NUR ---
Pt refused discharge vital signs. Pt discharged, ambulating out.
== END 2020-08-24 18:11 | disposition home or self-care (01) ==
LOC: ED 18:05
DX: F10.229 Alcohol dependence with intoxication, unspecified (principal); Z72.9 Problem related to lifestyle, unspecified; I10 Essential (primary) hypertension; F17.210 Nicotine dependence, cigarettes, uncomplicated; G40.909 Epilepsy, unspecified, not intractable, without status epilepticus; Y90.0 Blood alcohol level of less than 20 mg/100 ml
CPT/HCPCS: 99283; 99406

== ENCOUNTER 2020-08-27 17:36 | Emergency (ER) | payer MEDICARE, MEDICAID ==
[~2020-08-27] VITALS: Ht 177.8 cm; Wt 75.0 kg
--- NOTE | 2020-08-27 18:26 | NUR ---
Patient is resting comfortably in bed. Vital Signs within normal limits.
--- NOTE | 2020-08-27 18:50 | NUR ---
Report received from PIPO Booker. This RN to assume care. Awaiting orders. Patient resting in gurney. Respirations even and unlabored.
--- NOTE | 2020-08-27 20:35 | NUR ---
Patient resting in [place]. No complaints at this time. Respirations even and unlabored.
--- NOTE | 2020-08-27 21:43 | NUR ---
ATTEMPTED TO AMBULATE PT. PT WALKS WITH UNSTEADY GAIT. PT RETURNED TO [facility] WITH BOTH BED RAILS RAISED.
[2020-08-27 22:00] VITALS: BP 110/73
--- NOTE | 2020-08-27 22:03 | NUR ---
Patient ambulated without assistance down the singh and back to the bathroom. Patient ambulatory with a steady gait. Patient AAOx4, GCS 15. Patient denies any complaints. Discharge instructions given. All questions and concerns addressed. Belongings with patient. Taxi voucher povided.
== END 2020-08-27 22:06 | disposition home or self-care (01) ==
LOC: ED 22:00
DX: F10.229 Alcohol dependence with intoxication, unspecified (principal); I10 Essential (primary) hypertension; G40.909 Epilepsy, unspecified, not intractable, without status epilepticus; Y90.0 Blood alcohol level of less than 20 mg/100 ml
CPT/HCPCS: 99283

== ENCOUNTER 2020-09-04 15:54 | Emergency (ER) | payer MEDICARE, MEDICAID ==
[~2020-09-04] VITALS: Ht 162.6 cm; Wt 76.9 kg
--- NOTE | 2020-09-04 16:03 | NUR ---
REMY, PT STATES HE COULND'T WALK AFTER DRINKING TODAY, DENIES FALLING. PT ABLE TO SCOOT SELF FROM EMS [facility] TO [facility]. PT FOLLOWING COMMANDS, SLURRING WORDS. BLOOD SUGAR FROM EMS 89.
--- NOTE | 2020-09-04 18:23 | NUR ---
PT ATTEMPTED TO WALK, UNSETADY ON FEET. ERP UPDATED. PT GIVEN SANDWHICH AND WATER
--- NOTE | 2020-09-04 19:19 | NUR ---
PT SLEEPING, RESP EVEN AND UNLABORED
--- NOTE | 2020-09-04 21:59 | NUR ---
Lunch Relief RN. Patient ambulates with slow steady gait. drank sprite. Using bathroom and given taxi voucher to [facility].
[2020-09-04 22:00] VITALS: BP 104/62
== END 2020-09-04 22:03 | disposition home or self-care (01) ==
LOC: ED 16:16
DX: F10.220 Alcohol dependence with intoxication, uncomplicated (principal); Y90.0 Blood alcohol level of less than 20 mg/100 ml; G40.909 Epilepsy, unspecified, not intractable, without status epilepticus; F17.200 Nicotine dependence, unspecified, uncomplicated
CPT/HCPCS: 99283

== ENCOUNTER 2020-09-17 21:54 | Emergency (ER) | payer MEDICARE, MEDICAID ==
[~2020-09-17] VITALS: Ht 170.2 cm; Wt 75.4 kg
[2020-09-17 21:57] VITALS: BP 120/85
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
--- NOTE | 2020-09-17 23:35 | NUR ---
This patient walked to the ER, walked into the ER he is alert and oriented, able to navigate the community safely. Pt to be tx and dispo from triage.
== END 2020-09-17 23:52 | disposition home or self-care (01) ==
LOC: ED 22:04
DX: S90.822A Blister (nonthermal), left foot, initial encounter (principal); S90.821A Blister (nonthermal), right foot, initial encounter; F10.10 Alcohol abuse, uncomplicated; I10 Essential (primary) hypertension; G40.909 Epilepsy, unspecified, not intractable, without status epilepticus; F17.210 Nicotine dependence, cigarettes, uncomplicated; Z72.9 Problem related to lifestyle, unspecified; X58.XXXA Exposure to other specified factors, initial encounter; Y93.89 Activity, other specified; Y92.89 Other specified places as the place of occurrence of the external cause; Y99.8 Other external cause status; Y90.0 Blood alcohol level of less than 20 mg/100 ml
CPT/HCPCS: 99281

== ENCOUNTER 2020-10-04 22:06 | Emergency (ER) | payer MEDICARE, MEDICAID ==
[~2020-10-04] VITALS: Ht 170.2 cm; Wt 75.0 kg
--- NOTE | 2020-10-04 22:59 | NUR ---
PT RESTING IN BED, SLEEPING AT TIMES, VSS, NO COMPLAINTS
--- NOTE | 2020-10-04 23:22 | NUR ---
PT REFUSING SPLINT AT THIS TIME, ARGUING WITH STAFF AND PROVIDER, WILL WAIT FOR PT TO SOBER UP AND RE-ASSESS, VSS
--- NOTE | 2020-10-04 23:44 | NUR ---
PT AGREED TO SPLINT AT THIS TIME,VSS, SLEEPING IN BED
--- NOTE | 2020-10-05 00:38 | NUR ---
PT SLEEPING SOUNDLY WITH NO COMPLAINTS, WILL BE DC WITH CRUTCHES WHEN SOBER
--- NOTE | 2020-10-05 01:09 | NUR ---
BEDSIDE REPORT RECEIVED FROM JOHNNY FOSS. PATIENT RESTING IN BED WITH EYES CLOSED, BED IN [place] PATIENT FREQUENTS THIS ER AND IS KNOWN TO WAKE UP AND TRY TO GET OOB ON OWN. RAILS REMAIN UP FOR SAFETY. VS REMAIN STABLE AT THIS TIME. WILL CONTINUE TO MONITOR. Addendum: 10/05/20 at 0112 by ADOUGHTY RLE SPLINT REMAINS CDI
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
[2020-10-05 02:11] VITALS: BP 102/53
== END 2020-10-05 02:14 | disposition home or self-care (01) ==
LOC: ED 22:23
DX: S82.431A Displaced oblique fracture of shaft of right fibula, initial encounter for closed fracture (principal); S82.54XA Nondisplaced fracture of medial malleolus of right tibia, initial encounter for closed fracture; Z72.9 Problem related to lifestyle, unspecified; F10.129 Alcohol abuse with intoxication, unspecified; J43.9 Emphysema, unspecified; I10 Essential (primary) hypertension; G43.909 Migraine, unspecified, not intractable, without status migrainosus; Y90.0 Blood alcohol level of less than 20 mg/100 ml; W22.8XXA Striking against or struck by other objects, initial encounter; Y93.89 Activity, other specified; Y92.410 Unspecified street and highway as the place of occurrence of the external cause; Y99.8 Other external cause status
CPT/HCPCS: 29515; 99284

== ENCOUNTER 2020-11-13 09:21 | Emergency (ER) | payer MEDICARE, MEDICAID ==
[~2020-11-13] VITALS: Ht 167.6 cm; Wt 150.0 kg
[2020-11-13 09:35] VITALS: BP 132/72
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
[2020-11-13 09:59] LABS: BASOPHILS % (AUTO) 1 % (0-1); EOSINOPHILS % (AUTO) 0 % (1-7); LYMPHOCYTES % (AUTO) 14 % (22-44); MEAN CORPUSCULAR HEMOGLOBIN 31.5 pg (27.5-34.5); MEAN CORPUSCULAR HGB CONC 34.1 g/dL (33.2-36.2); MEAN PLATELET VOLUME 7.6 fL (7.4-10.4); MONOCYTES % (AUTO) 8 % (2-9); NEUTROPHILS % (AUTO) 77 % (42-75); PLATELET COUNT 249 x10^3/uL (130-400); RED BLOOD COUNT 4.74 x10^6/uL (4.38-5.82)
[2020-11-13 10:05] LABS: MD NO
[2020-11-13 10:11] LABS: ANION GAP 11 mmol/L (5-15); CALCIUM 8.5 mg/dL (8.5-10.1); CHLORIDE 105 mmol/L (98-107); CREATININE 0.66 mg/dL (0.7-1.3)
--- NOTE | 2020-11-13 10:44 | NUR ---
PT GIVEN RESOURCES AND OFFERED CAB VOUCHER TO GO TO [facility], PT NOW BECOMING AGITATED WITH STAFF. THROWING THE PAPERS ON THE FLOOR AND GETTING INTO TRANSFERING HIMSELF TO WHEELCHAIR, REFUSING ASSISTANCE. PT PUSHING HIMSELF WITH L LEG IN WHEELCHAIR TO DOOR. ERMD UPDATED.
== END 2020-11-13 10:54 | disposition home or self-care (01) ==
LOC: ED 09:30
DX: F10.220 Alcohol dependence with intoxication, uncomplicated (principal); F20.9 Schizophrenia, unspecified; Y90.0 Blood alcohol level of less than 20 mg/100 ml
CPT/HCPCS: 36415; 80048; 80320; 85025; 99283; G0480